=== PATIENT | male | born 1960 | race Caucasian/White ===

== ENCOUNTER 2016-12-19 12:01 | Emergency (ER) | payer OTHER ==
[~2016-12-19] VITALS: Wt 98.0 kg
[~2016-12-19 12:01] MED LIST: TAMS-14 PO
[2016-12-19] MEDS ORDERED: KETOROLAC 30 MG INJ IV STA (14:31)
[2016-12-19] MEDS ORDERED: ONDANSETRON 4 MG INJ IV STA (14:31)
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
[2016-12-19 14:35] LABS: URINE BLOOD (Dip) POC Negative (NEGATIVE)
[2016-12-19 15:09] LABS: BASOPHILS % 0.2 % (0.0-2.0); EOSINOPHILS # 0.3 10^3/ul (0.0-0.5); EOSINOPHILS % 2.5 % (0.0-7.0); HEMATOCRIT 48.3 % (42.0-52.0); HEMOGLOBIN 16.6 g/dl (14.0-18.0); LYMPHOCYTES # 2.8 10^3/ul (0.8-2.9); LYMPHOCYTES % 27.5 % (15.0-51.0); MEAN CORPUSCULAR HEMOGLOBIN 33.1 pg (29.0-33.0); MEAN CORPUSCULAR HGB CONC 34.3 g/dl (32.0-37.0); MEAN CORPUSCULAR VOLUME 96.6 fl (82.0-101.0); MEAN PLATELET VOLUME 7.9 fl (7.4-10.4); MONOCYTE # 0.7 10^3/ul (0.3-0.9); MONOCYTES % 7.1 % (0.0-11.0); NEUTROPHIL # 6.4 10^3/ul (1.6-7.5); NEUTROPHILS % 62.7 % (39.0-77.0); PLATELET COUNT 228 10^3/UL (140-440); RED CELL DISTRIBUTION WIDTH 14.2 % (11.5-14.5); UNCORRECTED WBC 10.2 10^3/ul (4.8-10.8); WHITE BLOOD COUNT 10.2 10^3/ul (4.8-10.8)
[2016-12-19 15:13] LABS: CONDITION 1
[2016-12-19 15:34] LABS: CHLORIDE 104 mmol/L (97-110)
[2016-12-19 15:35] LABS: ALBUMIN 4.1 g/dl (3.3-4.9); SODIUM 144 mmol/L (135-144)
[2016-12-19 15:36] LABS: POTASSIUM 4.1 mmol/L (3.5-5.1)
[2016-12-19 15:38] LABS: ALANINE AMINOTRANSFERASE 65 IU/L (13-69); ALKALINE PHOSPHATASE 109 IU/L (42-121); AMYLASE 155 U/L (11-123); ANION GAP 14 (8-16); ASPARTATE AMINO TRANSFERASE 44 IU/L (15-46); BILIRUBIN,INDIRECT 0.7 mg/dl (0-1.1); BILIRUBIN,TOTAL 0.7 mg/dl (0.2-1.3); BLOOD UREA NITROGEN 14 mg/dl (7-20); CALCIUM 9.3 mg/dl (8.4-10.2); CARBON DIOXIDE 30 mmol/L (21-31); CREATININE 0.88 mg/dl (0.61-1.24); GLUCOSE 95 mg/dl (70-220); TOTAL PROTEIN 7.5 g/dl (6.1-8.1)
[2016-12-19 15:39] LABS: INR 0.99; PROTIME 13.1 Sec (12.2-14.2)
[2016-12-19 15:40] LABS: PARTIAL THROMBOPLASTIN TIME 26.7 Sec (25.0-35.0)
--- NOTE | 2016-12-19 15:48 | RADRPT ---
PROCEDURE: US Scrotum. CLINICAL INDICATION: Evaluate for testicular torsion. TECHNIQUE: Multiple sonographic images of the scrotal region were obtained utilizing a linear arra y transducer with grayscale and color-flow and a Doppler imaging. The images were reviewed on a high -resolution PACS workstation. COMPARISON: No. FINDINGS: The right testicle is well visualized and has a normal echotexture. No focal areas of abnormal echog enicity are visualized. The right testicle measures measures 2.9 by 3.7 x 2.3 cm. There is normal co annette-flow the right testicle. The right epididymis is visualized and unremarkable in appearance. Ther e is normal color-flow. The left testicle is well visualized and has a normal echotexture. No focal areas abnormal echogenic ity are visualized. The left testicle measures measures 1.8 by 3.6 x 2 cm. There is normal color-robinson w. The left epididymis is visualized. Contains a epididymal cyst measuring 1.1 x 0.7 cm. There by is a adjacent 3.4 mm left epididymal cyst. There is normal color-flow. The scrotal wall is unremarkable. No swelling or edema is seen. There is no evidence of a varicocel e or hydrocele. No other incidental abnormality is identified. IMPRESSION: 1. There is no evidence of testicular torsion. 2. There are 2 benign cysts identified in the left epididymis. The largest measured 1.1 cm. RPTAT:AAJJ Physician Dany Date Time Electronically viewed and signed by Physician Dany on 12/19/2016 15:48 ELEONORA/
[2016-12-19 15:55] LABS: TROPONIN-I < 0.012 ng/ml (0.00-0.12)
[2016-12-19 16:04] LABS: ADD UMIC NO; URINE BILIRUBIN (Dip) NEGATIVE (NEGATIVE); URINE BLOOD (Dip) NEGATIVE (NEGATIVE); URINE COLOR LT. YELLOW (YELLOW); URINE GLUCOSE (Dip) NEGATIVE (NEGATIVE); URINE KETONES (Dip) NEGATIVE (NEGATIVE); URINE LEUKOCYTE ESTERASE (Dip) NEGATIVE (NEGATIVE); URINE NITRITE (Dip) NEGATIVE (NEGATIVE); URINE TOTAL PROTEIN (Dip) NEGATIVE (NEGATIVE); URINE UROBILINOGEN (Dip) 0.2 E.U./dL (0.1-1.0)
[2016-12-19] MEDS ORDERED: SOD CHLORIDE 0.9% 100 ML ONE (16:04)
[2016-12-19] MEDS ORDERED: IOHEXOL 300MG/ML 150 ML BTL ONE (16:04)
--- NOTE | 2016-12-19 16:56 | RADRPT ---
PROCEDURE: CT abdomen and pelvis with intravenous contrast. CLINICAL INDICATION: Right lower quadrant pain. Appendicitis. TECHNIQUE: CT scan of the abdomen and pelvis with intravenous t contrast was performed and is saran nstructed at 2.5 mm contiguous axial intervals from the dome of the diaphragm to the inferior pubic rami.. The patient was scanned without oral contrast. Sagittal and coronal reformatted images were obtained from the axial source images. The calculated radiation dose measures 975 mGy centimeters. The CTDI measures 15 mGy. COMPARISON: CT abdomen pelvis May 29, 2016 FINDINGS: The lung bases are clear of any infiltrate or nodule. No effusion is seen. The liver is of normal size, contour and attenuation with no mass or ductal dilatation. No gallston es are visualized. No splenic, adrenal or pancreatic abnormalities present. Kidneys enhance symmetrically and are of normal size and contour. No hydronephrosis, calculus or m asses seen. Ureters are of normal course and caliber with no stone. No bladder mass or stone is pr esent. Prostate and seminal vesicles are normal. There is no aneurysm. No adenopathy is present. No bowel mass or obstruction is present. The appendix is normal. No phlegmon, ascites or pneumop eritoneum is visualized. Noted is a right inguinal and scrotal hernia containing fat but no bowel. The osseous structures are intact. IMPRESSION: No evidence of urolithiasis, obstructive uropathy, diverticulitis or appendicitis. Right inguinal and scrotal hernia containing fat. .Aleksey Banuelos MD, Date Time Electronically viewed and signed by .Aleksey Banuelos MD, on 12/19/2016 16:55 .A/
[2016-12-19] MEDS ORDERED: HYDR-906 PO (17:54)
[2016-12-19 18:32] VITALS: BP 157/92; PULSE 63; RESP 16
== END 2016-12-19 18:30 | disposition home or self-care (01) ==
LOC: FTE 12:01
DX: K40.90 Unilateral inguinal hernia, without obstruction or gangrene, not specified as recurrent (principal); F17.210 Nicotine dependence, cigarettes, uncomplicated; R10.31 Right lower quadrant pain
CPT/HCPCS: 36415; 74177; 76870; 80053; 81003; 82150; 83690; 84484; 85025; 85610; 85730; 96374; 96375; J1885; J2405; Q9967; Z7502; Z7610

== ENCOUNTER 2017-01-14 08:02 | Day surgery (SDC) | payer OTHER ==
[2017-01-13 14:42] VITALS: BMI 32.0
[~2017-01-14] VITALS: Ht 172.7 cm; Wt 89.0 kg
[2017-01-14] VITALS (13 sets, daily range): BP systolic 100–149; BP diastolic 71–101; PULSE 70–78; RESP 13–18; Ht 172.7 cm; Wt 89.0 kg
[~2017-01-14 08:02] MED LIST changes: +HYDR-906 PO
--- NOTE | 2017-01-14 09:48 | HPN ---
Date/Time of Note Date/Time of Note DATE: 01/14/17 TIME: 09:48 Interval H&P Admission Note Pt. seen H&P reviewed: No system changes OLIVIA TONY MD Jan 14, 2017 09:48
[2017-01-14] MEDS ORDERED: CEFAZOLIN 1 GM INJ ONE (10:00)
[2017-01-14] MEDS ORDERED: PROPOFOL 20 ML ONE (10:00)
[2017-01-14] MEDS ORDERED: FENTAnyl 50 MCG/ML VIAL ONE ×2 (10:01→10:32)
[2017-01-14] MEDS ORDERED: MIDAZOLAM 1 MG/ML 2 ML INJ ONE (10:01)
[2017-01-14] MEDS ORDERED: BUPIVACAINE 0.25% (MPF) 30 ML INJ ONE (10:06)
[2017-01-14] MEDS ORDERED: POLYMYXIN/BACITRACIN 1L IRRIG ONE (10:06)
[2017-01-14] MEDS ORDERED: ONDANSETRON 4 MG INJ IV PRN ×2 (10:30→16:00)
[2017-01-14] MEDS ORDERED: EPHEDrine SULFATE 50 MG/5 ML SYG IV PRN (10:30)
[2017-01-14] MEDS ORDERED: LABETALOL HCL 20MG INJ IV PRN (10:30)
[2017-01-14] MEDS ORDERED: METOCLOPRAMIDE 10 MG INJ IV PRN (10:30)
[2017-01-14] MEDS ORDERED: DIPHENHYDRAMINE 50 MG INJ IV PRN (10:30)
[2017-01-14] MEDS ORDERED: hydrALAzine 20 MG INJ IV PRN (10:30)
[2017-01-14] MEDS ORDERED: MEPERIDINE 25 MG INJ IV PRN (10:30)
[2017-01-14] MEDS ORDERED: morphine (1 MG/ML) 10ML SYRINGE IV PRN ×3 (10:30)
[2017-01-14] MEDS ORDERED: HYDROmorphONE (0.2 MG/ML) 10ML SYG IV PRN ×3 (10:30)
[2017-01-14] MEDS ORDERED: PHENYLephrine (100 MCG/ML) 5ML SYG ONE (10:32)
[2017-01-14] MEDS ORDERED: ACETAMINOPHEN 1000MG/100ML IV 100 ML ONE (10:43)
[2017-01-14] MEDS ORDERED: ONDANSETRON 4 MG INJ ONE (11:27)
[2017-01-14] MEDS ORDERED: METOCLOPRAMIDE 10 MG INJ ONE (11:27)
[2017-01-14] MEDS ORDERED: DEXAMETHASONE 4 MG/ML 1 ML INJ ONE (11:27)
[2017-01-14] MEDS ORDERED: LEVALBUTEROL (NEB) 1.25 MG/0.5 ML AMP HHN ONE (11:30)
[2017-01-14] MEDS ORDERED: IPRATROPIUM (NEB) 0.5 MG/2.5 ML AMP HHN ONE (11:30)
--- NOTE | 2017-01-14 11:45 | OPR ---
DATE OF OPERATION: 01/14/2017 PREOPERATIVE DIAGNOSIS: Right inguinal hernia without obstruction. POSTOPERATIVE DIAGNOSIS: Right inguinal hernia without obstruction (direct and indirect). PROCEDURE PERFORMED: 1. Repair with extra-large and large plugs. 2. Right inguinal nerve block. SURGEON: Olivia Hull MD ANESTHESIA: General. ANESTHESIOLOGIST: Avelino Baugh MD OPERATIVE REPORT: After satisfactory general anesthesia was achieved, the lower abdomen was prepped and draped in the usual fashion. The right groin was entered through a 5 cm transverse incision th rough the right groin crease and carried down to the level of the external oblique. This was opened in the direction of its fibers. The cord was encircled and protected. There was a large indirect sac dissected to its base at the internal ring. The sac was transfixed and suture ligated at the ba se with 2-0 Vicryl. Redundant sac was excised and submitted. The internal ring was occluded by ryan cement of an extra-large plug secured circumferentially to healthy fascia with interrupted 3-0 Vicry l suture. There was also a direct inguinal hernia. This was reduced and the reduction was maintain ed by placing a large plug into the defect and securing it to healthy fascia and to the other mesh w ith 3-0 Vicryl. Next, the flat portion of the mesh was cut and fashioned to fit in the floor of the canal as an overlay. It was anchored at the pubic tubercle with 2-0 Novafil, laterally to inguinal ligament with interrupted 2-0 Novafil, and medially to conjoined tendon with interrupted 2-0 Novafi l. The mesh distal to the cord was reconstituted with a single suture of 2-0 Novafil creating a new internal ring of appropriate size. The cord was replaced beneath the external oblique, which was c losed with a running 3-0 Vicryl suture. Next, a right inguinal nerve block was performed, 10 mL of 0.25% plain Marcaine was injected into th e fascia 1 cm medial and inferior to the right anterior iliac spine. Then, 10 more mL of local anes thetic were injected directly into the wound. Myranda's fascia was closed with interrupted 3-0 Vicry l suture and skin closed with running 4-0 subcuticular Vicryl. Operative blood loss less than 20 mL . Sponge and needle counts reported as correct x2. The patient tolerated the procedure well and w ithout incident or complication. Dictated By: OLIVIA MORALES/JABIER Conf#: [id number] DID#: [id number] CC: NEGRITA CHAUDHARI MD;*EndCC*
[2017-01-14] MEDS ORDERED: OXYCODONE/ACETAMINOPHEN (5/325) TAB ONE (12:39)
[2017-01-14] MEDS ORDERED: OXYCODONE/ACETAMINOPHEN (5/325) TAB PO PRN ×2 (16:00)
[2017-01-14] MEDS ORDERED: morphine 2 MG INJ IV PRN (16:00)
== END 2017-01-14 13:48 | disposition home or self-care (01) ==
LOC: SDS 08:02
PROVIDERS: ATTEND Surgery
DX: K40.90 Unilateral inguinal hernia, without obstruction or gangrene, not specified as recurrent (principal)
CPT/HCPCS: 49505; C1781; J0131; J0690; J1100; J2250; J2270; J2370; J2405; J2765; J3010; Z7512; Z7610; 88302

== ENCOUNTER 2017-03-09 20:06 | Emergency (ER) | payer OTHER ==
[~2017-03-09] VITALS: Ht 177.8 cm; Wt 92.0 kg
[2017-03-09 20:08] VITALS: Ht 177.8 cm; Wt 92.0 kg
[2017-03-09] MEDS ORDERED: HYDROCODONE/APAP (10/325) TAB PO ONE (22:30)
[2017-03-10] MEDS ORDERED: OXYC-209 PO (00:27)
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
[2017-03-10 00:37] VITALS: BP 129/77; PULSE 79; RESP 18; TEMP 97.7
== END 2017-03-10 00:40 | disposition home or self-care (01) ==
LOC: E/R 20:06
DX: L76.82 Other postprocedural complications of skin and subcutaneous tissue (principal); F17.210 Nicotine dependence, cigarettes, uncomplicated
CPT/HCPCS: Z7502; Z7610; 99283

== ENCOUNTER 2017-04-12 12:45 | Emergency (ER) | payer OTHER ==
[~2017-04-12] VITALS: Ht 172.7 cm; Wt 87.0 kg
[~2017-04-12 12:45] MED LIST changes: +OXYC-209 PO
[2017-04-12 12:51] VITALS: Ht 172.7 cm; Wt 87.0 kg
[2017-04-12 14:29] LABS: URINE BLOOD (Dip) POC Negative (NEGATIVE)
[2017-04-12 15:14] LABS: ADD UMIC NO; URINE BILIRUBIN (Dip) NEGATIVE (NEGATIVE); URINE BLOOD (Dip) NEGATIVE (NEGATIVE); URINE COLOR LT. YELLOW (YELLOW); URINE GLUCOSE (Dip) NEGATIVE (NEGATIVE); URINE KETONES (Dip) NEGATIVE (NEGATIVE); URINE LEUKOCYTE ESTERASE (Dip) NEGATIVE (NEGATIVE); URINE NITRITE (Dip) NEGATIVE (NEGATIVE); URINE TOTAL PROTEIN (Dip) NEGATIVE (NEGATIVE); URINE UROBILINOGEN (Dip) 0.2 E.U./dL (0.1-1.0)
[2017-04-12 16:07] LABS: BARBITURATES Negative (NEGATIVE); BENZODIAZEPINES Negative (NEGATIVE); CANNABINOIDS Negative (NEGATIVE); COCAINE Negative (NEGATIVE); OPIATES Negative (NEGATIVE)
[2017-04-12 17:14] LABS: ADD SCAN DIFF NO; BASOPHILS % 0.3 % (0.0-2.0); EOSINOPHILS # 0.4 10^3/ul (0.0-0.5); EOSINOPHILS % 4.2 % (0.0-7.0); HEMATOCRIT 46.6 % (42.0-52.0); LYMPHOCYTES # 2.6 10^3/ul (0.8-2.9); MEAN CORPUSCULAR HEMOGLOBIN 32.1 pg (29.0-33.0); MEAN CORPUSCULAR HGB CONC 34.3 g/dl (32.0-37.0); MEAN CORPUSCULAR VOLUME 93.4 fl (82.0-101.0); MEAN PLATELET VOLUME 9.8 fl (7.4-10.4); MONOCYTE # 0.9 10^3/ul (0.3-0.9); MONOCYTES % 9.9 % (0.0-11.0); NEUTROPHILS % 56.4 % (39.0-77.0); PLATELET COUNT 230 10^3/UL (140-415); RED BLOOD COUNT 4.99 10^6/ul (4.70-6.10); RED CELL DISTRIBUTION WIDTH 13.7 % (11.5-14.5); WHITE BLOOD COUNT 8.9 10^3/ul (4.8-10.8)
[2017-04-12 17:34] LABS: ALANINE AMINOTRANSFERASE 57 IU/L (13-69); ALBUMIN 4.5 g/dl (3.3-4.9); ALBUMIN/GLOBULIN RATIO 1.66; ALKALINE PHOSPHATASE 85 IU/L (42-121); ANION GAP 11 (8-16); ASPARTATE AMINO TRANSFERASE 42 IU/L (15-46); BILIRUBIN,INDIRECT 1.2 mg/dl (0-1.1); BILIRUBIN,TOTAL 1.2 mg/dl (0.2-1.3); BLOOD UREA NITROGEN 13 mg/dl (7-20); CARBON DIOXIDE 29 mmol/L (21-31); CHLORIDE 106 mmol/L (97-110); CREATININE 0.92 mg/dl (0.61-1.24); GLUCOSE 89 mg/dl (70-220); SODIUM 142 mmol/L (135-144); TOTAL PROTEIN 7.2 g/dl (6.1-8.1)
[2017-04-12 17:39] LABS: ACETAMINOPHEN < 10.0 ug/ml (10.0-30.0); ETHANOL < 10.0 mg/dl; SALICYLATE < 1.0 mg/dl (5.0-30.0)
--- NOTE | 2017-04-12 18:59 | PSY ---
Date/Time of Note Date/Time of Note DATE: 04/12/17 TIME: 21:58 Psychiatric Subjective Eval Consent Pt consented to telemedicine: Yes Subjective Evaluation Patient location: emergency Chief Complaint: RECTAL PAIN X 4 DAYS History of present illness HPI: The patient is a 56 yo male well known to this ER, has a ho schizophrenia and substance use. He self presented for rectal and leg pain, which is his normal presentation. In the course of his evaluation, he began speaking about numerous delusions, including that he was forcibly violated by the police and hospital staff so that they can now control his bowel/bladder habits. He repeated this several times during the interview, would often tell MD that what he has to say is a "secret," that he would "thom" the MD or unclear reason, and that he does not need a psychiatrist but the nurses, doctors, and police as well as long term staff are trying to make him a "mental patient" for unclear reasons. He denied drug use though was positive for cocaine and methamphetamine. He would not report on any other questions PMHx: refused to answer Past Psych Hx: he has a ho multiple admits, would not report on anything else Pt declined to comment on meds, allergies, or any other part of his hx. MSE alert, initially cooperative then once he heard this MD is a psychiatrist isidoroe pressured, agitated butu stayed in med, pressured speech, would perseverate on delusions as above, refused to answer any other questions, when MD would ask questions he would either deny or tell MD that that information is private. Denies si/hi. Imp: 56 yo male with psychosis, acutely psychotic in the context of cocaine/ amphetamine use. Currently appears like he would be unable to function in the community in this state -fro now recommend 5150 in order to obtain full assessment; contact parallel hx to understand pt's baseline functioning. If pt remains in this state will likely need inpatient hospitalization -zyprexa 5mg po x1 now -for moderate agitation zyprexa 5mg po prn -for severe agitation haldol 5mg IM, ativan 2mg IM, cogentin 1mg IM -MD called Dr. Gilmore and left [facility] for him to call back Medical history Problems Medical Problems: (1) Abdominal pain Status: Acute (2) Cellulitis Status: Acute (3) Chest wall pain Status: Acute (4) Inguinal hernia Status: Acute (5) Pain of left leg Status: Acute (6) Postoperative complication Status: Acute (7) Psychosis Status: Acute (8) Substance abuse Status: Acute Allergies: Coded Allergies: ibuprofen (Verified Allergy, Unknown, 07/08/16) Psychiatric Objective Eval Mental Status Examination: Laboratory Results Laboratory Tests Test 04/12/17 14:33 04/12/17 14:40 04/12/17 16:50 Bedside Urine pH (LAB) 5.0 Bedside Urine Protein (LAB) Negative Bedside Urine Glucose (UA) Negative Bedside Urine Ketones (LAB) Negative Bedside Urine Blood Negative Bedside Urine Nitrite (LAB) Negative Bedside Urine Leukocyte Esterase (L Negative Urine Color LT. YELLOW Urine Clarity CLEAR Urine pH 5.5 Urine Specific [place] 1.015 Urine Ketones NEGATIVE Urine Nitrite NEGATIVE Urine Bilirubin NEGATIVE Urine Urobilinogen 0.2 E.U./dL Urine Leukocyte Esterase NEGATIVE Urine Hemoglobin NEGATIVE Urine Glucose NEGATIVE% Urine Total Protein NEGATIVE Urine Opiates Screen Negative Urine Barbiturates Negative Urine Amphetamines Screen POSITIVE Urine Benzodiazepines Screen Negative Urine Cocaine Screen Negative Urine Cannabinoids Negative White Blood Count 8.910^3/ul Red Blood Count 4.9910^6/ul Hemoglobin 16.0g/dl Hematocrit 46.6% Mean Corpuscular Volume 93.4fl Mean Corpuscular Hemoglobin 32.1pg Mean Corpuscular Hemoglobin Concent 34.3g/dl Red Cell Distribution Width 13.7% Platelet Count 39391^3/UL Mean Platelet Volume 9.8fl Neutrophils % 56.4% Lymphocytes % 29.0% Monocytes % 9.9% Eosinophils % 4.2% Basophils % 0.3% Nucleated Red Blood Cells % 0.0/100WBC Neutrophils # 5.010^3/ul Lymphocytes # 2.610^3/ul Monocytes # 0.910^3/ul Eosinophils # 0.410^3/ul Basophils # 0.010^3/ul Nucleated Red Blood Cells # 0.010^3/ul Sodium Level 142mmol/L Potassium Level 4.0mmol/L Chloride Level 106mmol/L Carbon Dioxide Level 29mmol/L Anion Gap 11 Blood Urea Nitrogen 13mg/dl Creatinine 0.92mg/dl Glucose Level 89mg/dl Calcium Level 9.0mg/dl Total Bilirubin 1.2mg/dl Direct Bilirubin 0.00mg/dl Indirect Bilirubin 1.2mg/dl Aspartate Amino Transf (AST/SGOT) 42IU/L Alanine Aminotransferase (ALT/SGPT) 57IU/L Alkaline Phosphatase 85IU/L Total Protein 7.2g/dl Albumin 4.5g/dl Globulin 2.70g/dl Albumin/Globulin Ratio 1.66 Salicylates Level < 1.0mg/dl Acetaminophen Level < 10.0ug/ml Ethyl Alcohol Level < 10.0mg/dl BRITTANY GR Apr 12, 2017 18:59
--- NOTE | 2017-04-12 19:47 | ERA ---
ER Documentation Chief Complaint Date/Time DATE: 04/12/17 TIME: 19:36 Chief Complaint buttocks pain HPI 56-year-old male patient well-known to the ER has a history of schizophrenia and drug abuse presents to the ED complaining of left-sided buttocks pain that radiates down his leg and rectum which started ever since 2011. States that he was seen at [facility] in 2011 and a nurse placed a Jacobson catheter and has been monitoring what he has been thinking for the past several years. Patient reports that he has numerous delusions about law-enforcement pretending to be medical providers and placing foreign objects into his body when they placed the Jacobson catheter. States that he has tried to "thom" other medical providers for unclear reasons. States that "those people" at the apartment where he lives are trying to poison his food. Denies any homicidal or suicidal ideations. Denies any hallucinations. Denies any drug use. Patient has been seen here previously for psychosis. Denies any chest pain, shortness of breath , melena, bloody stools, hematemesis, trauma, injuries, nausea, vomiting, diarrhea, fever, chills. ROS All systems reviewed and are negative except as per history of present illness. Medications Home Meds Active Scripts Oxycodone HCl/Acetaminophen (Percocet 10-325 mg Tablet) 1 Each Tablet, 1 EACH PO TID, #20 TAB Prov:MERVAT SIMONS 03/10/17 Hydrocodone/Acetaminophen ([place] 5-325 Tablet) 1 Each Tablet, 1 TAB PO Q6H Y for PAIN, #7 TAB Prov:GERARDO HELMS 12/19/16 Reported Medications Tamsulosin Hcl* (Flomax*) 0.4 Mg Cap.er.24h, 0.4 MG PO BID, CAP 05/29/16 Allergies Allergies: Coded Allergies: ibuprofen (Verified Allergy, Unknown, 07/08/16) PMhx/Soc Medical and Surgical Hx: pt denies Surgical Hx History of Surgery: Yes (ALEX LUNG DRAIN, HERNIA) Anesthesia Reaction: No Hx Neurological Disorder: No Hx Respiratory Disorders: No Hx Cardiac Disorders: No Hx Psychiatric Problems: No (denies, although admits to multiple 5150's in past ) Hx Miscellaneous Medical Probl: Yes (HIATAL HERNIA, UTI ) Hx Alcohol Use: No Hx Substance Use: Yes (METH) Hx Tobacco Use: Yes Smoking Status: Current every day smoker Physical Exam Vitals Vital Signs Date Time Temp Pulse Resp B/P Pulse Ox O2 Delivery O2 Flow Rate FiO2 04/12/17 12:51 97.8 85 18 133/72 100 Physical Exam Const: [id number], well-nourished. In no acute distress. Head: Atraumatic, normocephalic Eyes: Normal Conjunctiva without injection. No purulent discharge. ENT: Normal external ear, nose. Moist oropharynx without tonsillar exudates. Non -erythematous pharynx. Uvula midline. No drooling. No trismus. Neck: No cervical midline tenderness. Full range of motion. No meningismus. No cervical lymphadenopathy. No JVD. Resp: Clear to auscultation bilaterally. No wheezing, rhonchi, rales, or crackles. No accessory muscle use. No retractions. Cardio: Regular rate and rhythm. No murmurs, rubs or gallops. Abd: Soft, nontender, non distended. Normal bowel sounds. No palpable masses. No rebound tenderness. No guarding. Negative McBurney's point. Negative psoas sign. Negative obturator sign. No fluctuance, erythema, edema surrounding the buttocks region or anus. Rectal exam deferred. Skin: No petechiae or rashes Back: No midline tenderness. No CVA tenderness. Ext: No cyanosis, or edema. Neur: Awake and alert. Normal gait. Normal coordination. Agitated. Need for telepsychiatry consultation. Psych: Normal Mood and Affect Result Diagram: 04/12/17 1650 04/12/17 1650 Results 24 hrs Laboratory Tests Test 04/12/17 14:33 04/12/17 14:40 04/12/17 16:50 Bedside Urine pH (LAB) 5.0 Bedside Urine Protein (LAB) Negative Bedside Urine Glucose (UA) Negative Bedside Urine Ketones (LAB) Negative Bedside Urine Blood Negative Bedside Urine Nitrite (LAB) Negative Bedside Urine Leukocyte Esterase (L Negative Urine Color LT. YELLOW Urine Clarity CLEAR Urine pH 5.5 Urine Specific [place] 1.015 Urine Ketones NEGATIVE Urine Nitrite NEGATIVE Urine Bilirubin NEGATIVE Urine Urobilinogen 0.2 E.U./dL Urine Leukocyte Esterase NEGATIVE Urine Hemoglobin NEGATIVE Urine Glucose NEGATIVE% Urine Total Protein NEGATIVE Urine Opiates Screen Negative Urine Barbiturates Negative Urine Amphetamines Screen POSITIVE Urine Benzodiazepines Screen Negative Urine Cocaine Screen Negative Urine Cannabinoids Negative White Blood Count 8.910^3/ul Red Blood Count 4.9910^6/ul Hemoglobin 16.0g/dl Hematocrit 46.6% Mean Corpuscular Volume 93.4fl Mean Corpuscular Hemoglobin 32.1pg Mean Corpuscular Hemoglobin Concent 34.3g/dl Red Cell Distribution Width 13.7% Platelet Count 43815^3/UL Mean Platelet Volume 9.8fl Neutrophils % 56.4% Lymphocytes % 29.0% Monocytes % 9.9% Eosinophils % 4.2% Basophils % 0.3% Nucleated Red Blood Cells % 0.0/100WBC Neutrophils # 5.010^3/ul Lymphocytes # 2.610^3/ul Monocytes # 0.910^3/ul Eosinophils # 0.410^3/ul Basophils # 0.010^3/ul Nucleated Red Blood Cells # 0.010^3/ul Sodium Level 142mmol/L Potassium Level 4.0mmol/L Chloride Level 106mmol/L Carbon Dioxide Level 29mmol/L Anion Gap 11 Blood Urea Nitrogen 13mg/dl Creatinine 0.92mg/dl Glucose Level 89mg/dl Calcium Level 9.0mg/dl Total Bilirubin 1.2mg/dl Direct Bilirubin 0.00mg/dl Indirect Bilirubin 1.2mg/dl Aspartate Amino Transf (AST/SGOT) 42IU/L Alanine Aminotransferase (ALT/SGPT) 57IU/L Alkaline Phosphatase 85IU/L Total Protein 7.2g/dl Albumin 4.5g/dl Globulin 2.70g/dl Albumin/Globulin Ratio 1.66 Salicylates Level < 1.0mg/dl Acetaminophen Level < 10.0ug/ml Ethyl Alcohol Level < 10.0mg/dl Procedures/MDM This is a 56-year-old male patient with a history of schizophrenia and substance abuse presents to the ED complaining of left-sided buttock pain that radiates to his rectum and leg. Patient is afebrile and nontoxic-appearing. Patient has normal vital signs. Patient is speaking in full sentences. This case discussed with my supervising physician, Dr. Gilmore who agreed that we should have a tele-psychiatric consultation. CBC: No leukocytosis. No e/o of systemic infection. No e/o anemia. CMP: No e/o severe acidosis, alkalosis, renal failure, diabetic ketoacidosis, liver disease Urine: No leukocyte esterase, no nitrites, no hematuria. Urinalysis shows positive for amphetamines. Patient is under the care of Dr. Gilmore, my attending for further evaluation, treatment, and telepsychiatry consultation. Departure Diagnosis: Primary Impression: Psychosis Qualified Code: F29 - Psychosis, unspecified psychosis type Condition: Fair CA KING PA-C Apr 12, 2017 19:47
--- NOTE | 2017-04-12 20:42 | QN ---
Documentation Comment The patient was seen in ED 2 then sent to ED 1 for evaluation because of psychosis He was evaluated by telepsychiatrist who put on 5150 hold Unfortunately he eloped from the emergency department. I have asked the charge nurse Babita at 6:30 PM to contact [employer] to bring the patient back JONI GALEAS MD Apr 12, 2017 20:42
== END 2017-04-12 18:41 | disposition left against medical advice (07) ==
LOC: FTE 12:45 → E/R 18:41
DX: F29 Unspecified psychosis not due to a substance or known physiological condition (principal); F17.210 Nicotine dependence, cigarettes, uncomplicated
CPT/HCPCS: 36415; 80053; 80306; 80307; 81003; 85025; 99283

== ENCOUNTER 2017-04-20 02:33 | Emergency (ER) | payer OTHER ==
[~2017-04-20] VITALS: Ht 172.7 cm; Wt 88.0 kg
[2017-04-20 02:42] VITALS: Ht 172.7 cm; Wt 88.0 kg
[2017-04-20 03:57] LABS: ADD SCAN DIFF NO
[2017-04-20 04:05] LABS: BASOPHILS % 0.4 % (0.0-2.0); EOSINOPHILS # 0.2 10^3/ul (0.0-0.5); EOSINOPHILS % 1.8 % (0.0-7.0); HEMATOCRIT 46.2 % (42.0-52.0); LYMPHOCYTES # 2.9 10^3/ul (0.8-2.9); LYMPHOCYTES % 28.5 % (15.0-51.0); MEAN CORPUSCULAR HEMOGLOBIN 32.1 pg (29.0-33.0); MEAN CORPUSCULAR HGB CONC 34.6 g/dl (32.0-37.0); MEAN CORPUSCULAR VOLUME 92.6 fl (82.0-101.0); MEAN PLATELET VOLUME 9.7 fl (7.4-10.4); MONOCYTE # 0.8 10^3/ul (0.3-0.9); MONOCYTES % 7.8 % (0.0-11.0); NEUTROPHIL # 6.1 10^3/ul (1.6-7.5); NEUTROPHILS % 61.1 % (39.0-77.0); PLATELET COUNT 215 10^3/UL (140-415); RED BLOOD COUNT 4.99 10^6/ul (4.70-6.10); RED CELL DISTRIBUTION WIDTH 13.6 % (11.5-14.5)
[2017-04-20] MEDS ORDERED: OMEP40CA6 PO (04:18)
[2017-04-20 04:24] LABS: ALANINE AMINOTRANSFERASE 59 IU/L (13-69); ALBUMIN 4.5 g/dl (3.3-4.9); ALKALINE PHOSPHATASE 81 IU/L (42-121); ANION GAP 10 (8-16); ASPARTATE AMINO TRANSFERASE 35 IU/L (15-46); BILIRUBIN,INDIRECT 1.4 mg/dl (0-1.1); BILIRUBIN,TOTAL 1.4 mg/dl (0.2-1.3); BLOOD UREA NITROGEN 10 mg/dl (7-20); CARBON DIOXIDE 29 mmol/L (21-31); CHLORIDE 106 mmol/L (97-110); CREATININE 0.92 mg/dl (0.61-1.24); GLUCOSE 90 mg/dl (70-220); POTASSIUM 3.6 mmol/L (3.5-5.1); SODIUM 141 mmol/L (135-144)
[2017-04-20 04:26] LABS: ADD UMIC NO; UR BILIRUBIN (Dip) NEGATIVE (NEGATIVE); UR BLOOD (Dip) NEGATIVE (NEGATIVE); UR CLARITY CLEAR (CLEAR); UR COLOR LT. YELLOW (YELLOW); UR GLUCOSE (Dip) NEGATIVE (NEGATIVE); UR KETONES (Dip) NEGATIVE (NEGATIVE); UR LEUKOCYTE ESTERASE (Dip) NEGATIVE (NEGATIVE); UR NITRITE (Dip) NEGATIVE (NEGATIVE); UR TOTAL PROTEIN (Dip) NEGATIVE (NEGATIVE); UR UROBILINOGEN (Dip) 0.2 E.U./dL (0.1-1.0)
[2017-04-20 04:27] LABS: ACETAMINOPHEN < 10.0 ug/ml (10.0-30.0); ETHANOL < 10.0 mg/dl; SALICYLATE < 1.0 mg/dl (5.0-30.0)
[2017-04-20 04:51] LABS: BARBITURATES NEGATIVE (NEGATIVE); BENZODIAZEPINES NEGATIVE (NEGATIVE); CANNABINOIDS NEGATIVE (NEGATIVE); COCAINE NEGATIVE (NEGATIVE); OPIATES NEGATIVE (NEGATIVE)
--- NOTE | 2017-04-20 04:58 | ERA ---
ER Documentation Chief Complaint Date/Time DATE: 04/20/17 TIME: 04:57 Chief Complaint hearing voices, r foot pain states "someone put something in his shoes" HPI History of MS and is hearing voices that are times having spent some issues. Patient has history of previous psychiatric disorder. No obvious suicidal homicidal ideation. ROS All systems reviewed and are negative except as per history of present illness. Medications Home Meds Reported Medications Omeprazole* (Omeprazole*) 40 Mg Capsule.dr, 40 MG PO DAILY, #30 CAP 04/20/17 Tamsulosin Hcl* (Flomax*) 0.4 Mg Cap.er.24h, 0.4 MG PO BID, CAP 05/29/16 Discontinued Scripts Oxycodone HCl/Acetaminophen (Percocet 10-325 mg Tablet) 1 Each Tablet, 1 EACH PO TID, #20 TAB Prov:MERVAT SIMONS. 03/10/17 Hydrocodone/Acetaminophen ([place] 5-325 Tablet) 1 Each Tablet, 1 TAB PO Q6H Y for PAIN, #7 TAB Prov:GERARDO HELMS 12/19/16 Allergies Allergies: Coded Allergies: ibuprofen (Unverified Allergy, Unknown, 04/20/17) PMhx/Soc History of Surgery: Yes (ALEX LUNG DRAIN, HERNIA) Anesthesia Reaction: No Hx Neurological Disorder: No Hx Respiratory Disorders: No Hx Cardiac Disorders: No Hx Psychiatric Problems: No (denies, although admits to multiple 5150's in past ) Hx Miscellaneous Medical Probl: Yes (HIATAL HERNIA, UTI ) Hx Alcohol Use: No Hx Substance Use: Yes (METH) Hx Tobacco Use: Yes Smoking Status: Unknown if ever smoked Physical Exam Vitals Vital Signs Date Time Temp Pulse Resp B/P Pulse Ox O2 Delivery O2 Flow Rate FiO2 04/20/17 02:42 97.5 110 23 157/115 98 Physical Exam Const: [] Head: Atraumatic Eyes: Normal Conjunctiva ENT: Normal External Ears, Nose and Mouth. Neck: Full range of motion..~ No meningismus. Resp: Clear to auscultation bilaterally Cardio: Regular rate and rhythm, no murmurs Abd: Soft, non tender, non distended. Normal bowel sounds Skin: No petechiae or rashes Back: No midline or flank tenderness Ext: No cyanosis, or edema Neur: Awake and alert Psych: Normal Mood and Affect Result Diagram: 04/20/17 0346 04/20/17 0346 Results 24 hrs Laboratory Tests Test 04/20/17 03:46 04/20/17 03:58 White Blood Count 10.010^3/ul Red Blood Count 4.9910^6/ul Hemoglobin 16.0g/dl Hematocrit 46.2% Mean Corpuscular Volume 92.6fl Mean Corpuscular Hemoglobin 32.1pg Mean Corpuscular Hemoglobin Concent 34.6g/dl Red Cell Distribution Width 13.6% Platelet Count 90681^3/UL Mean Platelet Volume 9.7fl Neutrophils % 61.1% Lymphocytes % 28.5% Monocytes % 7.8% Eosinophils % 1.8% Basophils % 0.4% Nucleated Red Blood Cells % 0.0/100WBC Neutrophils # 6.110^3/ul Lymphocytes # 2.910^3/ul Monocytes # 0.810^3/ul Eosinophils # 0.210^3/ul Basophils # 0.010^3/ul Nucleated Red Blood Cells # 0.010^3/ul Sodium Level 141mmol/L Potassium Level 3.6mmol/L Chloride Level 106mmol/L Carbon Dioxide Level 29mmol/L Anion Gap 10 Blood Urea Nitrogen 10mg/dl Creatinine 0.92mg/dl Glucose Level 90mg/dl Calcium Level 9.0mg/dl Total Bilirubin 1.4mg/dl Direct Bilirubin 0.00mg/dl Indirect Bilirubin 1.4mg/dl Aspartate Amino Transf (AST/SGOT) 35IU/L Alanine Aminotransferase (ALT/SGPT) 59IU/L Alkaline Phosphatase 81IU/L Total Protein 7.0g/dl Albumin 4.5g/dl Globulin 2.50g/dl Albumin/Globulin Ratio 1.80 Salicylates Level < 1.0mg/dl Acetaminophen Level < 10.0ug/ml Ethyl Alcohol Level < 10.0mg/dl Urine Color LT. YELLOW Urine Clarity CLEAR Urine pH 5.5 Urine Specific [place] 1.020 Urine Ketones NEGATIVE Urine Nitrite NEGATIVE Urine Bilirubin NEGATIVE Urine Urobilinogen 0.2 E.U./dL Urine Leukocyte Esterase NEGATIVE Urine Hemoglobin NEGATIVE Urine Glucose NEGATIVE% Urine Total Protein NEGATIVE Urine Opiates Screen NEGATIVE Urine Barbiturates NEGATIVE Urine Amphetamines Screen POSITIVE Urine Benzodiazepines Screen NEGATIVE Urine Cocaine Screen NEGATIVE Urine Cannabinoids NEGATIVE Procedures/MDM Patient's behavioral symptoms have stabilized while in the department. Patient is medically cleared and appropriate for psychiatric evaluation and work up. No e/o neurologic, toxic, infectious, or metabolic cause. Patient evaluated by PET team and found to be stable for outpatient management Departure Diagnosis: Primary Impression: Psychological disorder Condition: Serious MERVAT SIMONS Andrew. Apr 20, 2017 04:58
[2017-04-20 06:04] VITALS: BP 139/97; PULSE 79; RESP 20; TEMP 98
--- NOTE | 2017-04-20 06:58 | PSY ---
Date/Time of Note Date/Time of Note DATE: 04/20/17 TIME: 06:45 Psychiatric Subjective Eval Consent Pt consented to telemedicine: Yes Subjective Evaluation Patient location: emergency Chief Complaint: hearing voices, r foot pain states "someone put something in his shoes" Reason for consult: delusional History of present illness patient is a 56 yo male living in a sober living with PPH of amphetamine use. who came to the ER due to foot pain and told ER staff that someone put something in his shoes, he was paranoid and psych eval was requested. Patient denies any psych hx but was put on a 5150 hold probably for a similar presentation since he states that the police put him on a 5150 hold for not believing that people were after him, but he was not admitted. He denies feeling depressed, hopeless or helpless , denies feeling anxious, denies any problem sleeping but feels that people at his sober living are "messing with him and poisoning him" and denies wanting to hurt them but he is hoping to catch them to denounce them to the police. denies any drug or alcohol use, no HI or SI, he is able to care for himself, find food and assisted , he is alert and oriented times 3, and goal directed but utox positive for amphetamine. Past psychiatric history one 5150 hold Medical history Problems Medical Problems: (1) Abdominal pain Status: Acute (2) Cellulitis Status: Acute (3) Chest wall pain Status: Acute (4) Inguinal hernia Status: Acute (5) Pain of left leg Status: Acute (6) Postoperative complication Status: Acute (7) Psychological disorder Status: Acute (8) Psychosis Status: Acute (9) Psychosis Status: Acute (10) Substance abuse Status: Acute Allergies: Coded Allergies: ibuprofen (Unverified Allergy, Unknown, 04/20/17) Substance Abuse Substance abuse history: Yes (amphetamine ) Prior substance abuse treatmen: No Social History Marital status: single Level of education: hs DPA/Conservatorship: No Occupation/Nursing Home: unemployed Psychiatric Objective Eval Review of Systems: Review of Systems: Not Applicable Physical Examination: Physical Examination: Applicable Sleep: Adequate Appetite: Adequate Energy: Adequate Interest: Adequate Mental Status Examination: Appearance: Groomed Eye Contact: Good Psychomotor Activity: Agitated Behavior: Cooperative Speech: Clear AFFECT: Appropriate Mood: Anxious Though Process: Linear Thought Content: Delusions Suicidal: No On 72 hour hold: No Orientation: x3 Cognition: Alert Insight: Mild Judgement: Mild Attention Span: Intact Laboratory Results Laboratory Tests Test 04/20/17 03:46 04/20/17 03:58 White Blood Count 10.010^3/ul Red Blood Count 4.9910^6/ul Hemoglobin 16.0g/dl Hematocrit 46.2% Mean Corpuscular Volume 92.6fl Mean Corpuscular Hemoglobin 32.1pg Mean Corpuscular Hemoglobin Concent 34.6g/dl Red Cell Distribution Width 13.6% Platelet Count 82103^3/UL Mean Platelet Volume 9.7fl Neutrophils % 61.1% Lymphocytes % 28.5% Monocytes % 7.8% Eosinophils % 1.8% Basophils % 0.4% Nucleated Red Blood Cells % 0.0/100WBC Neutrophils # 6.110^3/ul Lymphocytes # 2.910^3/ul Monocytes # 0.810^3/ul Eosinophils # 0.210^3/ul Basophils # 0.010^3/ul Nucleated Red Blood Cells # 0.010^3/ul Sodium Level 141mmol/L Potassium Level 3.6mmol/L Chloride Level 106mmol/L Carbon Dioxide Level 29mmol/L Anion Gap 10 Blood Urea Nitrogen 10mg/dl Creatinine 0.92mg/dl Glucose Level 90mg/dl Calcium Level 9.0mg/dl Total Bilirubin 1.4mg/dl Direct Bilirubin 0.00mg/dl Indirect Bilirubin 1.4mg/dl Aspartate Amino Transf (AST/SGOT) 35IU/L Alanine Aminotransferase (ALT/SGPT) 59IU/L Alkaline Phosphatase 81IU/L Total Protein 7.0g/dl Albumin 4.5g/dl Globulin 2.50g/dl Albumin/Globulin Ratio 1.80 Salicylates Level < 1.0mg/dl Acetaminophen Level < 10.0ug/ml Ethyl Alcohol Level < 10.0mg/dl Urine Color LT. YELLOW Urine Clarity CLEAR Urine pH 5.5 Urine Specific [place] 1.020 Urine Ketones NEGATIVE Urine Nitrite NEGATIVE Urine Bilirubin NEGATIVE Urine Urobilinogen 0.2 E.U./dL Urine Leukocyte Esterase NEGATIVE Urine Hemoglobin NEGATIVE Urine Glucose NEGATIVE% Urine Total Protein NEGATIVE Urine Opiates Screen NEGATIVE Urine Barbiturates NEGATIVE Urine Amphetamines Screen POSITIVE Urine Benzodiazepines Screen NEGATIVE Urine Cocaine Screen NEGATIVE Urine Cannabinoids NEGATIVE Assessment and Plan Assessment/Diagnosis [place] I: amphetamine induced psychosis [place] II: deferred [place] III: as per record [place] IV: poor social support [place] V: gaf 25 Recommendation/Plan Medication Management refusing medication Follow-up/Disposition In my opinion,for this patient, outpatient care is the least restrictive option. Based on available evidence, this condition CAN be safely treated at a lower level of care effective today. Patient is stable without clear and convincing evidence of imminent danger due to mental illness that requires acute inpatient psychiatric care as the least restrictive alternative. please refer patient to outpatient mental health clinic for medication management and pscyhotherapy YASIR AMEZQUITA MD Apr 20, 2017 06:55
== END 2017-04-20 07:06 | disposition home or self-care (01) ==
LOC: E/R 02:33
DX: F99 Mental disorder, not otherwise specified (principal); R40.2242 Coma scale, best verbal response, confused conversation, at arrival to emergency department; R40.2142 Coma scale, eyes open, spontaneous, at arrival to emergency department; R40.2362 Coma scale, best motor response, obeys commands, at arrival to emergency department; Z87.891 Personal history of nicotine dependence
CPT/HCPCS: 36415; 80053; 80306; 80307; 81003; 85025; Z7502; 99283

== ENCOUNTER 2017-04-25 01:36 | Inpatient (IN) | payer OTHER ==
[~2017-04-25] VITALS: Ht 172.7 cm; Wt 87.6 kg
[~2017-04-25 01:36] MED LIST changes: -HYDR-906 PO; +OMEP40CA6 PO; -OXYC-209 PO
[2017-04-25 02:05] VITALS: BP 112/79; RESP 20
[2017-04-25 02:18] VITALS: Ht 172.7 cm; Wt 87.6 kg
[2017-04-25] MEDS ORDERED: ONDANSETRON 4 MG INJ IV PRN (02:30)
[2017-04-25] MEDS ORDERED: DOCUSATE SODIUM 100 MG CAP PO PRN (02:30)
[2017-04-25] MEDS ORDERED: VANCOMYCIN IV PER PHARMACY XX SCH (02:30)
[2017-04-25] MEDS ORDERED: ACETAMINOPHEN 325 MG TAB PO PRN (02:30)
[2017-04-25] MEDS: HYDROCODONE/APAP (5/325) TAB PO PRN ×3 (02:56→20:24)
[2017-04-25] MEDS ORDERED: VANCOMYCIN 1.25 GM in SOD CHLORIDE 0.9% 250 ML IVPB SCH (03:00)
[2017-04-25 04:55] LABS: ADD SCAN DIFF NO
[2017-04-25 05:03] LABS: BASOPHILS % 0.3 % (0.0-2.0); EOSINOPHILS # 0.2 10^3/ul (0.0-0.5); EOSINOPHILS % 2.1 % (0.0-7.0); HEMATOCRIT 39.9 % (42.0-52.0); HEMOGLOBIN 13.8 g/dl (14.0-18.0); LYMPHOCYTES % 28.2 % (15.0-51.0); MEAN CORPUSCULAR HEMOGLOBIN 32.5 pg (29.0-33.0); MEAN CORPUSCULAR HGB CONC 34.6 g/dl (32.0-37.0); MEAN CORPUSCULAR VOLUME 93.9 fl (82.0-101.0); MEAN PLATELET VOLUME 9.8 fl (7.4-10.4); MONOCYTE # 1.1 10^3/ul (0.3-0.9); NEUTROPHIL # 6.3 10^3/ul (1.6-7.5); PLATELET COUNT 179 10^3/UL (140-415); RED BLOOD COUNT 4.25 10^6/ul (4.70-6.10); RED CELL DISTRIBUTION WIDTH 13.9 % (11.5-14.5); WHITE BLOOD COUNT 10.7 10^3/ul (4.8-10.8)
[2017-04-25 05:43] LABS: ALBUMIN 3.5 g/dl (3.3-4.9); ALBUMIN/GLOBULIN RATIO 1.52; BILIRUBIN,INDIRECT 1.6 mg/dl (0-1.1); BILIRUBIN,TOTAL 1.6 mg/dl (0.2-1.3); CALCIUM 8.2 mg/dl (8.4-10.2); CREATININE 0.79 mg/dl (0.61-1.24); PHOSPHORUS 2.3 mg/dl (2.5-4.9); POTASSIUM 3.8 mmol/L (3.5-5.1); TOTAL PROTEIN 5.8 g/dl (6.1-8.1)
[2017-04-25] MEDS: morphine 2 MG INJ IV PRN ×2 (05:46→22:23)
[2017-04-25] MEDS: PANTOPRAZOLE (EC) 40 MG TAB PO SCH (05:51)
--- NOTE | 2017-04-25 07:49 | HP ---
DATE OF ADMISSION: 04/25/2017 CHIEF COMPLAINT: Rectal pain. HISTORY OF PRESENT ILLNESS: The patient is a 56-year-old male with a history of psychiatric disorde r, likely schizophrenia, although the patient does deny any psych issues. The patient has been at [facility] in the past and has been evaluated by psychiatry. The patient was previously fadumo gnosed with amphetamine-induced psychosis. The patient presented to [facility] with the co mplaint of rectal pain. The patient did have a white count. He was transferred with the diagnosis of cellulitis in the perirectal area. Currently, he denies any significant itching in the actual re ctum. He states that the itching is on the proximal thigh. The patient states that he had a colono scopy recently at [facility], but results are not available on [facility]. It is unclear if this was actually done. The patient did have a right inguinal hernia repair in December of this year. Otherwise, the patient denies any significant medical history. PAST MEDICAL HISTORY: Psychiatric disorder. 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 It is unclear if he has any other psychiatric history. The patient denies having any psychiatric history. The patient den ies any other medical history. The patient had an EGD and colonoscopy in 2015 that showed GERD, gas tritis, PAST SURGICAL HISTORY: Right inguinal hernia repair with mesh in December 2016. HOME MEDICATIONS: 1. Flomax. 2. Omeprazole. ALLERGIES: IBUPROFEN. FAMILY HISTORY: Denies. SOCIAL HISTORY: He is currently homeless. Denies any alcohol abuse, tobacco abuse at this time. W hen it comes to drugs, he states that the occasionally uses, but he is not clear as to what type. H e does not want to tell me what type of drugs he uses. REVIEW OF SYSTEMS: A 12-point review of systems is negative except for that as discussed in HPI. PHYSICAL EXAMINATION: VITAL SIGNS: Temperature is 97.5, pulse 60, respiratory rate is 20, blood pressure is 112/79, satur ation 95% on room air. GENERAL: No acute distress, alert, and oriented. HEENT: Normocephalic, atraumatic. LUNGS: Clear to auscultation. CARDIOVASCULAR: Regular rate and rhythm. ABDOMEN: Nondistended, nontender, soft. EXTREMITIES: No clubbing, cyanosis, or edema. SKIN: Chronic skin changes noted in the perirectal area. No acute erythema. LABORATORIES: At [facility], white count 20.9, hemoglobin of 15.7. Lactic acid 1.4. UA i s normal except for some trace protein, 15 ketones. BNP is within normal limits except for glucose slightly elevated at 107. DIAGNOSTICS: Chest x-ray is normal. ASSESSMENT AND PLAN 1. Leukocytosis. This is likely reactive. There are no acute infection noted. No perirectal absc esses infection is noted. The patient reportedly had a CT scan. 2. ____ the patient had no abscess in the perirectal area. No indication for antibiotics. His whi te count is likely reactive. UA shows no infection. Chest x-ray was also normal with no evidence o f pneumonia. 3. History of amphetamine-induced psychosis. The patient has no psychosis at this time. The patie nt denies any history of schizophrenia or any other psychiatric disorder. 4. History of right inguinal hernia repair with no acute issues. 5. Homelessness. The patient would benefit from a forensic social worker consultation. 6. Prophylaxis. SCDs. Dictated By: TSERING STRICKLAND/JABIER Conf#: [id number] DID#: [id number]
[2017-04-25 08:04] VITALS: BP 101/64; RESP 19
--- NOTE | 2017-04-25 12:51 | PN ---
Date/Time of Note Date/Time of Note DATE: 04/25/17 TIME: 12:44 Assessment/Plan VTE Prophylaxis VTE Prophylaxis Intervention: ambulation Lines/Catheters [facility] ([facility] Saline Lock Central line still needed: No Urinary Cath still in place: No Assessment/Plan Assessment/Plan 1. Leukocytosis. Resolved. Etiology is likely reactive. There are no acute infection noted. No perirectal abscesses infection is noted. 2. Abscess: Not seen. The patient had no abscess in the perirectal area by examination. No indication for antibiotics. His white count is likely reactive. UA shows no infection. Chest x-ray was also normal with no evidence of pneumonia. 3. History of amphetamine-induced psychosis. The patient has no psychosis at this time. The patient denies any history of schizophrenia or any other psychiatric disorder. 4. History of right inguinal hernia repair with no acute issues. 5. Social. The patient would benefit from a social work associate consultation to assist with placement. He lives in [place], but his family may not want him there as they had "a falling out." 6. Amphetamine-induced psychosis: will get psych re-evaluation. This can also safely be done as an outpatient. 7. Prophylaxis. Protonix; SCDs. ambulation. Subjective 24 Hr Interval Summary Free Text/Dictation Talkative. No complaints. Constitutional: no complaints Exam/Review of Systems Vital Signs Vitals Vital Signs Date Time Temp Pulse Resp B/P Pulse Ox O2 Delivery O2 Flow Rate FiO2 04/25/17 08:04 98.7 61 19 101/64 100 Intake and Output 04/24/17 04/24/17 04/25/17 15:00 23:00 07:00 Intake Total 750 ml Balance 750 ml Exam Constitutional: alert, oriented, well developed Psych: anxiety, no complaints Head: normocephalic Eyes: nl conjunctiva ENMT: nl external ears & nose Neck: supple Respiratory: clear to auscultation Cardiovascular: regular rate and rhythm Gastrointestinal: soft Musculoskeletal: nl extremities to inspection Results Result Diagram: 04/25/17 0434 04/25/17 0434 Results 24 hrs Laboratory Tests Test 04/25/17 04:34 White Blood Count 10.7 Red Blood Count 4.25 L Hemoglobin 13.8 L Hematocrit 39.9 L Mean Corpuscular Volume 93.9 Mean Corpuscular Hemoglobin 32.5 Mean Corpuscular Hemoglobin Concent 34.6 Red Cell Distribution Width 13.9 Platelet Count 179 Mean Platelet Volume 9.8 Neutrophils % 59.0 Lymphocytes % 28.2 Monocytes % 10.0 Eosinophils % 2.1 Basophils % 0.3 Nucleated Red Blood Cells % 0.0 Neutrophils # 6.3 Lymphocytes # 3.0 H Monocytes # 1.1 H Eosinophils # 0.2 Basophils # 0.0 Nucleated Red Blood Cells # 0.0 Sodium Level 140 Potassium Level 3.8 Chloride Level 111 H Carbon Dioxide Level 26 Anion Gap 7 L Blood Urea Nitrogen 17 Creatinine 0.79 Glucose Level 96 Hemoglobin A1c 5.5 Calcium Level 8.2 L Phosphorus Level 2.3 L Magnesium Level 2.0 Total Bilirubin 1.6 H Direct Bilirubin 0.00 Indirect Bilirubin 1.6 H Aspartate Amino Transf (AST/SGOT) 28 Alanine Aminotransferase (ALT/SGPT) 39 Alkaline Phosphatase 58 Total Protein 5.8 L Albumin 3.5 Globulin 2.30 Albumin/Globulin Ratio 1.52 Medications Medications Current Medications Ondansetron HCl (Zofran Inj) 4 mg Q6H PRN IV NAUSEA AND/OR VOMITING; Start at 02:30 Acetaminophen (Tylenol Tab) 650 mg Q6H PRN PO PAIN AND OR ELEVATED TEMP; Start 04/25/17 at 02:30 Acetaminophen/ Hydrocodone Bitart ([place] (5/325)) 1 tab Q4H PRN PO PAIN LEVEL 4 -6 Last administered on 04/25/17 11:02; Admin Dose 1 TAB; Start 04/25/17 at 02: 30 Morphine Sulfate (morphine) 2 mg Q4H PRN IV PAIN LEVEL 7-10 Last administered on 04/25/17 05:46; Admin Dose 2 MG; Start 04/25/17 at 02:30 Docusate Sodium (Colace) 100 mg BID PRN PO constipation Last administered on 05:46; Admin Dose 100 MG; Start 04/25/17 at 02:30 Pantoprazole (Protonix Tab) 40 mg DAILY@06 PO Last administered on 04/25/17 05 :51; Admin Dose 40 MG; Start 04/25/17 at 06:00 MADHAVI KOEHLER MD Apr 25, 2017 12:51
[2017-04-25] MEDS: NYSTATIN 15 GM CR TOP SCH ×2 (14:19→22:02)
[2017-04-25 19:53] VITALS: BP 107/65; RESP 16
[2017-04-26] MEDS: PANTOPRAZOLE (EC) 40 MG TAB PO SCH (06:27)
[2017-04-26] MEDS: HYDROCODONE/APAP (5/325) TAB PO PRN ×2 (07:02→21:48)
[2017-04-26 08:43] VITALS: BP 108/78; RESP 18
--- NOTE | 2017-04-26 08:46 | PN ---
Date/Time of Note Date/Time of Note DATE: 04/26/17 TIME: 08:44 Assessment/Plan VTE Prophylaxis VTE Prophylaxis Intervention: ambulation Lines/Catheters IV [facility] Type (from [facility] Saline Lock Urinary Cath still in place: No Assessment/Plan Assessment/Plan 1. Leukocytosis. Resolved. Etiology is likely reactive. There are no acute infection noted. No perirectal abscesses infection is noted. 2. History of amphetamine-induced psychosis. The patient has no psychosis at this time. The patient denies any history of schizophrenia or any other psychiatric disorder. Awaiting tele-psych recommendations. 4. History of right inguinal hernia repair with no acute issues. 5. Social. The patient would benefit from a social welfare administrator consultation to assist with placement. He lives in [place], but his family may not want him there as they had "a falling out." 6. Amphetamine-induced psychosis: will get psych re-evaluation. Hoepfully today to start medications. This can also safely be continued as an outpatient. 7. Prophylaxis. Protonix; SCDs. ambulation. Subjective 24 Hr Interval Summary Free Text/Dictation Resting comfortably in bed. He is still delusional with thoughts. Exam/Review of Systems Vital Signs Vitals Vital Signs Date Time Temp Pulse Resp B/P Pulse Ox O2 Delivery O2 Flow Rate FiO2 04/25/17 19:53 98.5 69 16 107/65 95 Intake and Output 04/25/17 04/25/17 04/26/17 14:59 22:59 06:59 Intake Total 700 ml 600 ml Output Total 100 ml Balance 600 ml 600 ml Exam Constitutional: alert, oriented Psych: anxiety Head: normocephalic Eyes: nl conjunctiva ENMT: nl external ears & nose Neck: supple Respiratory: clear to auscultation Cardiovascular: regular rate and rhythm Gastrointestinal: soft Results Result Diagram: 04/25/17 0434 04/25/17 0434 Medications Medications Current Medications Ondansetron HCl (Zofran Inj) 4 mg Q6H PRN IV NAUSEA AND/OR VOMITING; Start at 02:30 Acetaminophen (Tylenol Tab) 650 mg Q6H PRN PO PAIN AND OR ELEVATED TEMP; Start 04/25/17 at 02:30 Acetaminophen/ Hydrocodone Bitart ([place] (5/325)) 1 tab Q4H PRN PO PAIN LEVEL 4 -6 Last administered on 04/26/17 07:02; Admin Dose 1 TAB; Start 04/25/17 at 02: 30 Morphine Sulfate (morphine) 2 mg Q4H PRN IV PAIN LEVEL 7-10 Last administered on 04/25/17 22:23; Admin Dose 2 MG; Start 04/25/17 at 02:30 Docusate Sodium (Colace) 100 mg BID PRN PO constipation Last administered on 05:46; Admin Dose 100 MG; Start 04/25/17 at 02:30 Pantoprazole (Protonix Tab) 40 mg DAILY@06 PO Last administered on 04/26/17 06 :27; Admin Dose 40 MG; Start 04/25/17 at 06:00 Nystatin (Nystatin Cr) 1 applic BID TOP Last administered on 04/25/17 22:02; Admin Dose 1 APPLIC; Start 04/25/17 at 14:30 MADHAVI KOEHLER MD Apr 26, 2017 08:46
[2017-04-26] MEDS: NYSTATIN 15 GM CR TOP SCH ×2 (10:08→20:00)
--- NOTE | 2017-04-26 10:46 | PN ---
Date/Time of Note Date/Time of Note DATE: 04/26/17 TIME: 10:44 Assessment/Plan VTE Prophylaxis VTE Prophylaxis Intervention: ambulation Lines/Catheters IV Catheter Type (from Nrsg): Saline Lock Urinary Cath still in place: No Assessment/Plan Assessment/Plan 1. leukocytosis, nos, improving, will recheck 2. paranoia, will investigate psychiatric possiblities, though patient has refused care in the past 3. homelss, await social work 4. anticipate d.c tomorrow Subjective 24 Hr Interval Summary Free Text/Dictation somewhat agitated very fixed on perceived maltreatment from law enforcement, the govenrment, and health care seems quite paranoid Exam/Review of Systems Vital Signs Vitals Vital Signs Date Time Temp Pulse Resp B/P Pulse Ox O2 Delivery O2 Flow Rate FiO2 04/26/17 08:43 97.6 58 18 108/78 97 Intake and Output 04/25/17 04/25/17 04/26/17 15:00 23:00 07:00 Intake Total 700 ml 600 ml Output Total 100 ml Balance 600 ml 600 ml Exam Constitutional: alert Respiratory: clear to auscultation Cardiovascular: regular rate and rhythm Gastrointestinal: non-tender, soft Results Result Diagram: 04/25/17 0434 04/25/17 0434 Medications Medications Current Medications Ondansetron HCl (Zofran Inj) 4 mg Q6H PRN IV NAUSEA AND/OR VOMITING; Start at 02:30 Acetaminophen (Tylenol Tab) 650 mg Q6H PRN PO PAIN AND OR ELEVATED TEMP; Start 04/25/17 at 02:30 Acetaminophen/ Hydrocodone Bitart ([place] (5/325)) 1 tab Q4H PRN PO PAIN LEVEL 4 -6 Last administered on 04/26/17 07:02; Admin Dose 1 TAB; Start 04/25/17 at 02: 30 Morphine Sulfate (morphine) 2 mg Q4H PRN IV PAIN LEVEL 7-10 Last administered on 04/25/17 22:23; Admin Dose 2 MG; Start 04/25/17 at 02:30 Docusate Sodium (Colace) 100 mg BID PRN PO constipation Last administered on 05:46; Admin Dose 100 MG; Start 04/25/17 at 02:30 Pantoprazole (Protonix Tab) 40 mg DAILY@06 PO Last administered on 04/26/17 06 :27; Admin Dose 40 MG; Start 04/25/17 at 06:00 Nystatin (Nystatin Cr) 1 applic BID TOP Last administered on 04/26/17 10:08; Admin Dose 1 APPLIC; Start 04/25/17 at 14:30 NAM MESSINA MD Apr 26, 2017 10:46
--- NOTE | 2017-04-26 12:41 | PN ---
Date/Time of Note Date/Time of Note DATE: 04/26/17 TIME: 12:39 Assessment/Plan VTE Prophylaxis VTE Prophylaxis Intervention: SCD's Lines/Catheters [facility] Saline Lock Urinary Cath still in place: No Assessment/Plan Chief Complaint/Hosp Course ASSESSMENT AND PLAN 1. Leukocytosis. This is likely reactive. There are no acute infection noted. No perirectal abscesses infection is noted. The patient reportedly had a CT scan. the patient had no abscess in the perirectal area. No indication for antibiotics. His white count is likely reactive. UA shows no infection. Chest x-ray was also normal with no evidence of pneumonia. 2. History of amphetamine-induced psychosis. The patient has no psychosis at this time. The patient denies any history of schizophrenia or any other psychiatric disorder. 3. History of right inguinal hernia repair with no acute issues. 4. Hyperbilirubinemia, follow up bilirubin level in a.m. 5. Homelessness. The patient would benefit from a social media developer consultation. 6. Prophylaxis. SCDs. We will continue monitor patient closely for recommendation management treatment as clinical course Anticipate discharge tomorrow Problems: Subjective 24 Hr Interval Summary Free Text/Dictation Patient denies of any chest pain or shortness of breath No nausea vomiting diarrhea Tolerating oral intake Exam/Review of Systems Vital Signs Vitals Vital Signs Date Time Temp Pulse Resp B/P Pulse Ox O2 Delivery O2 Flow Rate FiO2 04/26/17 08:43 97.6 58 18 108/78 97 Intake and Output 04/25/17 04/25/17 04/26/17 15:00 23:00 07:00 Intake Total 700 ml 600 ml Output Total 100 ml Balance 600 ml 600 ml Exam General: The patient is well-developed, Not in acute distress. HEENT: Atraumatic, normocephalic. The pupils are equal and round . Neck: Supple with full range of motion. Chest: Normal expansion of the thorax during inspiration Lungs: Clear to auscultation bilaterally Heart: Normal S1-S2, Regular rhythm and rate. Abdomen: Soft , nontender, nondistended , bowel sounds are present. Extremities: Normal to inspection, no edema no cyanosis Neurologic: Normal mental status,The patient is awake, alert and oriented . Results Result Diagram: 04/25/17 0434 04/25/17 0434 Medications Medications Current Medications Ondansetron HCl (Zofran Inj) 4 mg Q6H PRN IV NAUSEA AND/OR VOMITING; Start at 02:30 Acetaminophen (Tylenol Tab) 650 mg Q6H PRN PO PAIN AND OR ELEVATED TEMP; Start 04/25/17 at 02:30 Acetaminophen/ Hydrocodone Bitart ([place] (5/325)) 1 tab Q4H PRN PO PAIN LEVEL 4 -6 Last administered on 04/26/17 07:02; Admin Dose 1 TAB; Start 04/25/17 at 02: 30 Morphine Sulfate (morphine) 2 mg Q4H PRN IV PAIN LEVEL 7-10 Last administered on 04/25/17 22:23; Admin Dose 2 MG; Start 04/25/17 at 02:30 Docusate Sodium (Colace) 100 mg BID PRN PO constipation Last administered on 05:46; Admin Dose 100 MG; Start 04/25/17 at 02:30 Pantoprazole (Protonix Tab) 40 mg DAILY@06 PO Last administered on 04/26/17 06 :27; Admin Dose 40 MG; Start 04/25/17 at 06:00 Nystatin (Nystatin Cr) 1 applic BID TOP Last administered on 04/26/17 10:08; Admin Dose 1 APPLIC; Start 04/25/17 at 14:30 TERRY SINGH MD Apr 26, 2017 12:41
[2017-04-26] MEDS: morphine 2 MG INJ IV PRN (19:55)
[2017-04-26 20:00] VITALS: BP 129/82; RESP 16
[2017-04-27 05:18] LABS: ADD SCAN DIFF NO
[2017-04-27 05:31] LABS: BASOPHILS % 0.4 % (0.0-2.0); EOSINOPHILS # 0.4 10^3/ul (0.0-0.5); HEMATOCRIT 40.2 % (42.0-52.0); HEMOGLOBIN 13.9 g/dl (14.0-18.0); LYMPHOCYTES # 2.6 10^3/ul (0.8-2.9); LYMPHOCYTES % 39.3 % (15.0-51.0); MEAN CORPUSCULAR HEMOGLOBIN 32.3 pg (29.0-33.0); MEAN CORPUSCULAR HGB CONC 34.6 g/dl (32.0-37.0); MEAN CORPUSCULAR VOLUME 93.3 fl (82.0-101.0); MEAN PLATELET VOLUME 10.6 fl (7.4-10.4); MONOCYTE # 0.6 10^3/ul (0.3-0.9); MONOCYTES % 8.4 % (0.0-11.0); NEUTROPHIL # 3.1 10^3/ul (1.6-7.5); NEUTROPHILS % 45.6 % (39.0-77.0); PLATELET COUNT 191 10^3/UL (140-415); RED BLOOD COUNT 4.31 10^6/ul (4.70-6.10); RED CELL DISTRIBUTION WIDTH 13.5 % (11.5-14.5); WHITE BLOOD COUNT 6.7 10^3/ul (4.8-10.8)
[2017-04-27 05:57] LABS: ALBUMIN 3.3 g/dl (3.3-4.9); ALBUMIN/GLOBULIN RATIO 1.37; BILIRUBIN,INDIRECT 0.3 mg/dl (0-1.1); BILIRUBIN,TOTAL 0.3 mg/dl (0.2-1.3); CALCIUM 8.6 mg/dl (8.4-10.2); CREATININE 0.78 mg/dl (0.61-1.24); TOTAL PROTEIN 5.7 g/dl (6.1-8.1)
[2017-04-27] MEDS: PANTOPRAZOLE (EC) 40 MG TAB PO SCH (06:17)
[2017-04-27 07:54] VITALS: BP 122/78; RESP 19
[2017-04-27] MEDS: NYSTATIN 15 GM CR TOP SCH (09:00)
--- NOTE | 2017-04-27 10:34 | PN ---
Date/Time of Note Date/Time of Note DATE: 04/27/17 TIME: 10:28 Assessment/Plan VTE Prophylaxis VTE Prophylaxis Intervention: ambulation Lines/Catheters IV Catheter Type (from Nrs): Saline Lock Urinary Cath still in place: No Assessment/Plan Assessment/Plan 1. leukocytosis, improved, no cause identified 2. psychosis, nos plan psych eval, if not a candidate for hold, plan to d/c to self care 3. d/c home Subjective 24 Hr Interval Summary Free Text/Dictation patient remains fixated on his view that law enforcment has caused all of his health issues Exam/Review of Systems Vital Signs Vitals Vital Signs Date Time Temp Pulse Resp B/P Pulse Ox O2 Delivery O2 Flow Rate FiO2 04/27/17 07:54 97.6 59 19 122/78 98 Intake and Output 04/26/17 04/26/17 04/27/17 15:00 23:00 07:00 Intake Total 840 ml 840 ml Balance 840 ml 840 ml Exam Constitutional: alert Respiratory: clear to auscultation Cardiovascular: regular rate and rhythm Results Result Diagram: 04/27/17 0424 04/27/17 0424 Results 24 hrs Laboratory Tests Test 04/27/17 04:24 White Blood Count 6.7 # Red Blood Count 4.31 L Hemoglobin 13.9 L Hematocrit 40.2 L Mean Corpuscular Volume 93.3 Mean Corpuscular Hemoglobin 32.3 Mean Corpuscular Hemoglobin Concent 34.6 Red Cell Distribution Width 13.5 Platelet Count 191 Mean Platelet Volume 10.6 H Neutrophils % 45.6 Lymphocytes % 39.3 Monocytes % 8.4 Eosinophils % 6.0 Basophils % 0.4 Nucleated Red Blood Cells % 0.0 Neutrophils # 3.1 Lymphocytes # 2.6 Monocytes # 0.6 Eosinophils # 0.4 Basophils # 0.0 Nucleated Red Blood Cells # 0.0 Sodium Level 141 Potassium Level 4.0 Chloride Level 109 Carbon Dioxide Level 27 Anion Gap 9 Blood Urea Nitrogen 12 Creatinine 0.78 Glucose Level 119 Calcium Level 8.6 Total Bilirubin 0.3 Direct Bilirubin 0.00 Indirect Bilirubin 0.3 Aspartate Amino Transf (AST/SGOT) 35 Alanine Aminotransferase (ALT/SGPT) 45 Alkaline Phosphatase 85 Total Protein 5.7 L Albumin 3.3 Globulin 2.40 Albumin/Globulin Ratio 1.37 Medications Medications Current Medications Ondansetron HCl (Zofran Inj) 4 mg Q6H PRN IV NAUSEA AND/OR VOMITING; Start at 02:30 Acetaminophen (Tylenol Tab) 650 mg Q6H PRN PO PAIN AND OR ELEVATED TEMP; Start 04/25/17 at 02:30 Acetaminophen/ Hydrocodone Bitart ([place] (5/325)) 1 tab Q4H PRN PO PAIN LEVEL 4 -6 Last administered on 04/26/17 21:48; Admin Dose 1 TAB; Start 04/25/17 at 02: 30 Morphine Sulfate (morphine) 2 mg Q4H PRN IV PAIN LEVEL 7-10 Last administered on 04/26/17 19:55; Admin Dose 2 MG; Start 04/25/17 at 02:30 Docusate Sodium (Colace) 100 mg BID PRN PO constipation Last administered on 05:46; Admin Dose 100 MG; Start 04/25/17 at 02:30 Pantoprazole (Protonix Tab) 40 mg DAILY@06 PO Last administered on 04/27/17 06 :17; Admin Dose 40 MG; Start 04/25/17 at 06:00 Nystatin (Nystatin Cr) 1 applic BID TOP Last administered on 04/26/17 20:00; Admin Dose 1 APPLIC; Start 04/25/17 at 14:30 NAM MESSINA MD Apr 27, 2017 10:34
[2017-04-27] MEDS ORDERED: NYST15CR28 TOP (10:36)
--- NOTE | 2017-04-27 10:37 | PDOCDIS ---
Discharge Instructions DIAGNOSIS Discharge Diagnosis rash high white blood cell count, resolved CONDITION Patient Condition: Good HOME CARE INSTRUCTIONS: Diet Instructions: RegularSpecial Diet: REG ACTIVITY: Activity Restrictions: No Restrictions FOLLOW UP/APPOINTMENTS Follow-up Plan with primary care strongly recommend mental health evaluation NAM MESSINA MD Apr 27, 2017 10:37
--- NOTE | 2017-04-27 12:53 | DS ---
Date/Time of Note Date/Time of Note DATE: 04/27/17 TIME: 12:49 Discharge Summary Admission/Discharge Info Admit Date/Time Apr 25, 2017 at 01:36 Discharge Date/Time Apr 27, 2017 at 11:20 Discharge Diagnosis Note patient signed out AMA 1. Leukocytosis. This is likely reactive. 2. History of amphetamine-induced psychosis. 3. History of right inguinal hernia repair with no acute issues. 4. Hyperbilirubinemia, 5. Homelessness. Hospital Course The patient is a 56-year-old male with a history of psychiatric disorder, likely schizophrenia, although the patient does deny any psych issues. The patient has been at [facility] in the past and has been evaluated by psychiatry. The patient was previously diagnosed with amphetamine-induced psychosis. The patient presented to [facility] with the complaint of rectal pain. The patient did have a white count. He was transferred with the diagnosis of cellulitis in the perirectal area. Currently, he denies any significant itching in the actual rectum. He states that the itching is on the proximal thigh. The patient states that he had a colonoscopy recently at [facility], but results are not available on [employer]. It is unclear if this was actually done. The patient did have a right inguinal hernia repair in December of this year. During the examination there was no evidence of infection. Patient was found to have leukocytosis which was likely reactive. Patient was admitted to [facility] and was placed on prophylactic IV antibiotics and pain medication. This morning patient was planned to be discharged to facility although he decided to elope without notifying the nurse or nurse materials supervisor. By doing such act patient has taken all the risk upon himself. In case of worsening of her condition, infection, abdominal pain or any abdominal pathology patient has taken the risk by leaving the hospital without notifying any personal Home Meds Active Scripts Nystatin* (Nystatin*) 15 Gm Cr, 1 APPLIC TOP BID for 7 Days, #1 TUB Prov:NAM MESSINA MD 04/27/17 Reported Medications Omeprazole* (Omeprazole*) 40 Mg Capsule.dr, 40 MG PO DAILY, #30 CAP 04/20/17 Tamsulosin Hcl* (Flomax*) 0.4 Mg Cap.er.24h, 0.4 MG PO BID, CAP 05/29/16 Discontinued Scripts Oxycodone HCl/Acetaminophen (Percocet 10-325 mg Tablet) 1 Each Tablet, 1 EACH PO TID, #20 TAB Prov:MERVAT SIMONS 03/10/17 Hydrocodone/Acetaminophen ([place] 5-325 Tablet) 1 Each Tablet, 1 TAB PO Q6H Y for PAIN, #7 TAB Prov:WEISTUARTGERARDO Rashaad 12/19/16 Primary Care Provider Scott Puente MD Pending Labs Laboratory Tests Test 04/27/17 04:24 White Blood Count 6.710^3/ul (4.8-10.8) Red Blood Count 4.3110^6/ul (4.70-6.10) Hemoglobin 13.9g/dl (14.0-18.0) Hematocrit 40.2% (42.0-52.0) Mean Corpuscular Volume 93.3fl (82.0-101.0) Mean Corpuscular Hemoglobin 32.3pg (29.0-33.0) Mean Corpuscular Hemoglobin Concent 34.6g/dl (32.0-37.0) Red Cell Distribution Width 13.5% (11.5-14.5) Platelet Count 10871^3/UL (140-415) Mean Platelet Volume 10.6fl (7.4-10.4) Neutrophils % 45.6% (39.0-77.0) Lymphocytes % 39.3% (15.0-51.0) Monocytes % 8.4% (0.0-11.0) Eosinophils % 6.0% (0.0-7.0) Basophils % 0.4% (0.0-2.0) Nucleated Red Blood Cells % 0.0/100WBC (0.0-0.0) Neutrophils # 3.110^3/ul (1.6-7.5) Lymphocytes # 2.610^3/ul (0.8-2.9) Monocytes # 0.610^3/ul (0.3-0.9) Eosinophils # 0.410^3/ul (0.0-0.5) Basophils # 0.010^3/ul (0.0-0.1) Nucleated Red Blood Cells # 0.010^3/ul (0.0-0.0) Sodium Level 141mmol/L (135-144) Potassium Level 4.0mmol/L (3.5-5.1) Chloride Level 109mmol/L (97-110) Carbon Dioxide Level 27mmol/L (21-31) Anion Gap 9 (8-16) Blood Urea Nitrogen 12mg/dl (7-20) Creatinine 0.78mg/dl (0.61-1.24) Glucose Level 119mg/dl (70-220) Calcium Level 8.6mg/dl (8.4-10.2) Total Bilirubin 0.3mg/dl (0.2-1.3) Direct Bilirubin 0.00mg/dl (0.00-0.20) Indirect Bilirubin 0.3mg/dl (0-1.1) Aspartate Amino Transf (AST/SGOT) 35IU/L (15-46) Alanine Aminotransferase (ALT/SGPT) 45IU/L (13-69) Alkaline Phosphatase 85IU/L (42-121) Total Protein 5.7g/dl (6.1-8.1) Albumin 3.3g/dl (3.3-4.9) Globulin 2.40g/dl (1.3-3.2) Albumin/Globulin Ratio 1.37 TERRY SINGH MD Apr 27, 2017 12:53
--- NOTE | 2017-04-27 13:40 | DS ---
Date/Time of Note Date/Time of Note DATE: 04/27/17 TIME: 13:37 Discharge Summary Admission/Discharge Info Admit Date/Time Apr 25, 2017 at 01:36 Discharge Date/Time Apr 27, 2017 at 11:20 Discharge Diagnosis Note patient signed out AMA 1. Leukocytosis. This is likely reactive. 2. History of amphetamine-induced psychosis. 3. History of right inguinal hernia repair with no acute issues. 4. Hyperbilirubinemia, 5. Homelessness. Patient Condition: Good Consults social work case management Hx of Present Illness [facility] and concern for "rectal sellulitis". He was treated for intertrigo with nystatin and his "cellulitis" improved. His leukocytosis is felt to be reactive and not indicative of any infection; it spontaneously resolved. Patiet was offered numerous times to have social work and psychiatry assist him for homelessness and psychosis/paranoia respectively. However he reefused these interventions repeatedly. Prior to a formal discharge disposition being arranged for the patient he eloped from the hospital. Hospital Course The patient is a 56-year-old male with a history of psychiatric disorder, likely schizophrenia, although the patient does deny any psych issues. The patient has been at [facility] in the past and has been evaluated by psychiatry. The patient was previously diagnosed with amphetamine-induced psychosis. The patient presented to [facility] with the complaint of rectal pain. The patient did have a white count. He was transferred with the diagnosis of cellulitis in the perirectal area. Currently, he denies any significant itching in the actual rectum. He states that the itching is on the proximal thigh. The patient states that he had a colonoscopy recently at [facility], but results are not available on [employer]. It is unclear if this was actually done. The patient did have a right inguinal hernia repair in December of this year. During the examination there was no evidence of infection. Patient was found to have leukocytosis which was likely reactive. Patient was admitted to [facility] and was placed on prophylactic IV antibiotics and pain medication. This morning patient was planned to be discharged to facility although he decided to elope without notifying the nurse or nurse supervisor veneer. By doing such act patient has taken all the risk upon himself. In case of worsening of her condition, infection, abdominal pain or any abdominal pathology patient has taken the risk by leaving the hospital without notifying any personal Home Meds Active Scripts Nystatin* (Nystatin*) 15 Gm Cr, 1 APPLIC TOP BID for 7 Days, #1 TUB Prov:NAM MESSINA MD 04/27/17 Reported Medications Omeprazole* (Omeprazole*) 40 Mg Capsule.dr, 40 MG PO DAILY, #30 CAP 04/20/17 Tamsulosin Hcl* (Flomax*) 0.4 Mg Cap.er.24h, 0.4 MG PO BID, CAP 05/29/16 Discontinued Scripts Oxycodone HCl/Acetaminophen (Percocet 10-325 mg Tablet) 1 Each Tablet, 1 EACH PO TID, #20 TAB Prov:MERVAT SIMONS 03/10/17 Hydrocodone/Acetaminophen ([place] 5-325 Tablet) 1 Each Tablet, 1 TAB PO Q6H Y for PAIN, #7 TAB Prov:GERARDO HELMS 12/19/16 Primary Care Provider Scott Puente MD Pending Labs Laboratory Tests Test 04/27/17 04:24 White Blood Count 6.710^3/ul (4.8-10.8) Red Blood Count 4.3110^6/ul (4.70-6.10) Hemoglobin 13.9g/dl (14.0-18.0) Hematocrit 40.2% (42.0-52.0) Mean Corpuscular Volume 93.3fl (82.0-101.0) Mean Corpuscular Hemoglobin 32.3pg (29.0-33.0) Mean Corpuscular Hemoglobin Concent 34.6g/dl (32.0-37.0) Red Cell Distribution Width 13.5% (11.5-14.5) Platelet Count 73277^3/UL (140-415) Mean Platelet Volume 10.6fl (7.4-10.4) Neutrophils % 45.6% (39.0-77.0) Lymphocytes % 39.3% (15.0-51.0) Monocytes % 8.4% (0.0-11.0) Eosinophils % 6.0% (0.0-7.0) Basophils % 0.4% (0.0-2.0) Nucleated Red Blood Cells % 0.0/100WBC (0.0-0.0) Neutrophils # 3.110^3/ul (1.6-7.5) Lymphocytes # 2.610^3/ul (0.8-2.9) Monocytes # 0.610^3/ul (0.3-0.9) Eosinophils # 0.410^3/ul (0.0-0.5) Basophils # 0.010^3/ul (0.0-0.1) Nucleated Red Blood Cells # 0.010^3/ul (0.0-0.0) Sodium Level 141mmol/L (135-144) Potassium Level 4.0mmol/L (3.5-5.1) Chloride Level 109mmol/L (97-110) Carbon Dioxide Level 27mmol/L (21-31) Anion Gap 9 (8-16) Blood Urea Nitrogen 12mg/dl (7-20) Creatinine 0.78mg/dl (0.61-1.24) Glucose Level 119mg/dl (70-220) Calcium Level 8.6mg/dl (8.4-10.2) Total Bilirubin 0.3mg/dl (0.2-1.3) Direct Bilirubin 0.00mg/dl (0.00-0.20) Indirect Bilirubin 0.3mg/dl (0-1.1) Aspartate Amino Transf (AST/SGOT) 35IU/L (15-46) Alanine Aminotransferase (ALT/SGPT) 45IU/L (13-69) Alkaline Phosphatase 85IU/L (42-121) Total Protein 5.7g/dl (6.1-8.1) Albumin 3.3g/dl (3.3-4.9) Globulin 2.40g/dl (1.3-3.2) Albumin/Globulin Ratio 1.37 NAM MESSINA MD Apr 27, 2017 13:40
== END 2017-04-27 11:20 | disposition left against medical advice (07) | DRG 816 ==
LOC: MS1 01:36
PROVIDERS: ADMIT Internal Medicine; ATTEND Internal Medicine
DX: D72.828 Other elevated white blood cell count (principal); E80.6 Other disorders of bilirubin metabolism; Z59.0 Homelessness; F29 Unspecified psychosis not due to a substance or known physiological condition; K62.89 Other specified diseases of anus and rectum
CPT/HCPCS: 80053; 83036; 83735; 84100; 85025; J2270; J3370; J7050

== ENCOUNTER 2017-05-01 12:27 | Inpatient (IN) | payer MEDICAID, OTHER ==
[~2017-05-01] VITALS: Ht 172.7 cm; Wt 85.0 kg
[~2017-05-01 12:27] MED LIST changes: +NYST15CR28 TOP
[2017-05-01] MEDS ORDERED: SODIUM CHLORIDE 0.9% 1L BAG IV* STA (12:54)
[2017-05-01] MEDS ORDERED: VANCOMYCIN 1 GM (PMX) 250 ML IVPB ONE (13:00)
[2017-05-01 13:29] LABS: BASOPHILS % 0.3 % (0.0-2.0); HEMATOCRIT 48.2 % (42.0-52.0); HEMOGLOBIN 17.2 g/dl (14.0-18.0); LYMPHOCYTES # 1.2 10^3/ul (0.8-2.9); LYMPHOCYTES % 8.4 % (15.0-51.0); MEAN CORPUSCULAR HEMOGLOBIN 33.3 pg (29.0-33.0); MEAN CORPUSCULAR HGB CONC 35.7 g/dl (32.0-37.0); MEAN CORPUSCULAR VOLUME 93.4 fl (82.0-101.0); MEAN PLATELET VOLUME 10.2 fl (7.4-10.4); NEUTROPHIL # 11.4 10^3/ul (1.6-7.5); NEUTROPHILS % 83.9 % (39.0-77.0); PLATELET COUNT 227 10^3/UL (140-415); RED BLOOD COUNT 5.16 10^6/ul (4.70-6.10); RED CELL DISTRIBUTION WIDTH 13.5 % (11.5-14.5); WHITE BLOOD COUNT 13.6 10^3/ul (4.8-10.8)
[2017-05-01 13:45] LABS: INR 0.99; PARTIAL THROMBOPLASTIN TIME 25.2 Sec (25.0-35.0); PROTIME 13.1 Sec (12.2-14.2)
[2017-05-01 13:48] LABS: ALBUMIN 5.2 g/dl (3.3-4.9); ALBUMIN/GLOBULIN RATIO 1.62; CALCIUM 9.7 mg/dl (8.4-10.2); CREATININE 1.93 mg/dl (0.61-1.24); POTASSIUM 4.7 mmol/L (3.5-5.1); TOTAL PROTEIN 8.4 g/dl (6.1-8.1)
--- NOTE | 2017-05-01 13:53 | RADRPT ---
PROCEDURE: XR Chest 1 View. CLINICAL INDICATION: Shortness of breath, sepsis. TECHNIQUE: AP view of the chest was obtained. COMPARISON: May 29, 2016 FINDINGS: The cardiomediastinal silhouette is within normal limits. Subsegmental atelectasis is noted at the l evelyn bases. Osseous structures are intact. IMPRESSION: Subsegmental atelectasis at the lung bases. RPTAT: AA .Pienda Estevez MD, MD Date Time Electronically viewed and signed by .Pineda Estevez MD, on 05/01/2017 13:52 .P/
[2017-05-01 13:59] LABS: TROPONIN-I 0.033 ng/ml (0.00-0.12)
[2017-05-01] MEDS ORDERED: CEFEPIME 1GM/50 ML (PMX) 50 ML IVPB ONE (15:30)
[2017-05-01] MEDS ORDERED: ACETAMINOPHEN 325 MG TAB PO ONE (17:00)
[2017-05-01] MEDS ORDERED: ONDANSETRON 4 MG INJ IV PRN (17:00)
[2017-05-01] MEDS ORDERED: ACETAMINOPHEN 325 MG TAB PO PRN ×2 (17:00→18:00)
--- NOTE | 2017-05-01 17:44 | HP ---
Date/Time of Note Date/Time of Note DATE: 05/01/17 TIME: 17:33 Assessment/Plan VTE Prophylaxis VTE Prophylaxis Intervention: SCD's Assessment/Plan Assessment/Plan 56 yo M with pmhx methamphetamine induced psychosis presents with erythema to bl ankles concerning for cellulitis given leukocytosis. Pt meets sepsis criteria given tachycardia (though may 2/2 substance abuse), leukocytosis and ankle erythema concerning for skin/soft tissue infection. Also with LESLEY PLAN cont empiric abx, ancef for strep coverage. red patch without evidence of blister or pustule much more clinically consistent with strep than staph as causative origin LESLEY: IVFs. 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 Of note pt recently admitted to this facility 6.25-6.27 for c/o ?rectal ceullulitis. Denied rectal itching on arrival. Started on empiric abx. Eloped after 48 hours without telling anyone. Pt previously evaluated by psychiatry and diagnosed with methamphetamine induced psychosis. Today pt states that his ankles have been red for the past few days. He states that this is because of lasers from the government. PMH/Family/Social Past Medical History as per [facility] Social History homeless Smoking Status: Former smoker Exam/Review of Systems Vital Signs Vitals Vital Signs Date Time Temp Pulse Resp B/P Pulse Ox O2 Delivery O2 Flow Rate FiO2 05/01/17 13:08 Nasal Cannula 05/01/17 12:38 98.0 150 19 151/82 94 Exam Exam sunburn of face/UEs. multiple tattoos MMM EOMI moves exts freely no mrg lungs clear abd soft erythema noted to bl ankles. On R ankle 4 cm round nonblanching patch to anterior aspect of lower leg extending from just above foot. On L ankle large ~ 8x 6 cm erythematous patch extending proximally from ankle. Borders of both patches marked in pen and dated WBCs 13s, lactate slightly high Labs Result Diagram: 05/01/17 1310 05/01/17 1310 CARLOS MARROQUIN MD May 01, 2017 17:43
[2017-05-01] MEDS ORDERED: NACL 0.9% 3 ML SYG IV SCH (18:00)
[2017-05-01] MEDS ORDERED: ONDANSETRON 4 MG TAB PO PRN (18:00)
[2017-05-01 18:11] LABS: ADD UMIC YES; UR ASCORBIC ACID NEGATIVE (NEGATIVE); UR BACTERIA FEW /HPF (NONE SEEN); UR BILIRUBIN (Dip) NEGATIVE (NEGATIVE); UR BLOOD (Dip) 1+ mg/dL (NEGATIVE); UR CLARITY SLIGHTLY CLOUDY (CLEAR); UR COLOR YELLOW (YELLOW); UR GLUCOSE (Dip) NEGATIVE (NEGATIVE); UR KETONES (Dip) 1+ mg/dL (NEGATIVE); UR LEUKOCYTE ESTERASE (Dip) NEGATIVE Leu/ul (NEGATIVE); UR MUCUS FEW /HPF (NONE SEEN); UR NITRITE (Dip) NEGATIVE (NEGATIVE); UR RBC 0 /HPF (0-5); UR TOTAL PROTEIN (Dip) 1+ mg/dl (NEGATIVE); UR UROBILINOGEN (Dip) NEGATIVE (NEGATIVE)
[2017-05-01 18:45] VITALS: TEMP 97.8
[2017-05-01] MEDS: morphine 2 MG INJ IV PRN (18:45)
[2017-05-01] MEDS: SOD CHLORIDE 0.9% 1,000 ML IV SCH (18:46)
[2017-05-01] MEDS: CEFAZOLIN 1 GM/50 ML (PMX) 50 ML IVPB SCH (18:46)
[2017-05-01 19:45] VITALS: BP 104/68; PULSE 86; RESP 20; Ht 172.7 cm; Wt 85.0 kg
[2017-05-01 20:25] LABS: BARBITURATES NEGATIVE (NEGATIVE); BENZODIAZEPINES NEGATIVE (NEGATIVE); CANNABINOIDS NEGATIVE (NEGATIVE); COCAINE NEGATIVE (NEGATIVE); OPIATES NEGATIVE (NEGATIVE)
[2017-05-01 21:44] VITALS: BP 104/68; RESP 20
[2017-05-01] MEDS: HYDROCODONE/APAP (5/325) TAB PO PRN (22:08)
[2017-05-02] MEDS: CEFAZOLIN 1 GM/50 ML (PMX) 50 ML IVPB SCH ×3 (02:31→18:56)
[2017-05-02] MEDS: SOD CHLORIDE 0.9% 1,000 ML IV SCH ×2 (02:31→10:00)
[2017-05-02] MEDS: morphine 2 MG INJ IV PRN ×4 (03:14→19:49)
[2017-05-02 05:53] LABS: BASOPHILS % 0.3 % (0.0-2.0); EOSINOPHILS # 0.2 10^3/ul (0.0-0.5); HEMATOCRIT 40.3 % (42.0-52.0); HEMOGLOBIN 14.1 g/dl (14.0-18.0); LYMPHOCYTES # 2.6 10^3/ul (0.8-2.9); LYMPHOCYTES % 24.6 % (15.0-51.0); MEAN CORPUSCULAR HEMOGLOBIN 32.5 pg (29.0-33.0); MEAN CORPUSCULAR VOLUME 92.9 fl (82.0-101.0); MEAN PLATELET VOLUME 10.4 fl (7.4-10.4); MONOCYTE # 1.2 10^3/ul (0.3-0.9); MONOCYTES % 11.1 % (0.0-11.0); NEUTROPHIL # 6.5 10^3/ul (1.6-7.5); NEUTROPHILS % 61.5 % (39.0-77.0); PLATELET COUNT 212 10^3/UL (140-415); RED BLOOD COUNT 4.34 10^6/ul (4.70-6.10); RED CELL DISTRIBUTION WIDTH 13.5 % (11.5-14.5); WHITE BLOOD COUNT 10.5 10^3/ul (4.8-10.8)
[2017-05-02 06:09] LABS: CALCIUM 8.3 mg/dl (8.4-10.2); CREATININE 0.95 mg/dl (0.61-1.24); POTASSIUM 3.9 mmol/L (3.5-5.1)
[2017-05-02 06:37] LABS: ADD SCAN DIFF NO
[2017-05-02 07:30] VITALS: BP 113/63; RESP 18
[2017-05-02] MEDS: ENOXAPARIN 40 MG/0.4 ML SYG SC SCH (08:20)
[2017-05-02 08:21] LABS: ALBUMIN 3.3 g/dl (3.3-4.9); BILIRUBIN,INDIRECT 1.5 mg/dl (0-1.1); BILIRUBIN,TOTAL 1.5 mg/dl (0.2-1.3); TOTAL PROTEIN 5.7 g/dl (6.1-8.1)
--- NOTE | 2017-05-02 13:10 | PN ---
Date/Time of Note Date/Time of Note DATE: 05/02/17 TIME: 13:09 Assessment/Plan VTE Prophylaxis VTE Prophylaxis Intervention: SCD's Lines/Catheters IV Catheter Type (from Nrs): Peripheral IV Assessment/Plan Assessment/Plan 56 yo M with pmhx methamphetamine induced psychosis presents with erythema to bl ankles concerning for cellulitis given leukocytosis. Pt meets sepsis criteria given tachycardia (though march 02 substance abuse), leukocytosis and ankle erythema concerning for skin/soft tissue infection. Also with LESLEY--> resolved. PLAN cont ancef. consider changing to keflex tomorrow stop IVFs meth cessation advised ankle xrs general diet, push PO fluids DVT prophx Subjective 24 Hr Interval Summary Free Text/Dictation States his ankles still hurt. States he used meth 1 day prior to admission. Not interested in stopping Exam/Review of Systems Vital Signs Vitals Vital Signs Date Time Temp Pulse Resp B/P Pulse Ox O2 Delivery O2 Flow Rate FiO2 05/02/17 07:30 97.9 69 18 113/63 94 05/01/17 19:45 Room Air Intake and Output 05/01/17 05/01/17 05/02/17 15:00 23:00 07:00 Intake Total 350 ml 2370 ml Balance 350 ml 2370 ml Exam nad, laying in bed no mrg lungs clear abd soft bl ankle erythema sig improving. no calf swelling. Results Result Diagram: 05/02/17 0435 05/02/17 0435 Results 24 hrs Laboratory Tests Test 05/01/17 13:10 05/01/17 17:45 05/01/17 18:45 05/01/17 18:55 White Blood Count 13.6 #H Red Blood Count 5.16 Hemoglobin 17.2 # Hematocrit 48.2 Mean Corpuscular Volume 93.4 Mean Corpuscular Hemoglobin 33.3 H Mean Corpuscular Hemoglobin Concent 35.7 Red Cell Distribution Width 13.5 Platelet Count 227 Mean Platelet Volume 10.2 Neutrophils % 83.9 H Lymphocytes % 8.4 L Monocytes % 7.0 Eosinophils % 0.0 Basophils % 0.3 Nucleated Red Blood Cells % 0.0 Neutrophils # 11.4 H Lymphocytes # 1.2 Monocytes # 1.0 H Eosinophils # 0.0 Basophils # 0.0 Nucleated Red Blood Cells # 0.0 Prothrombin Time 13.1 Prothrombin Time Ratio 1.0 INR International Normalized Ratio 0.99 Activated Partial Thromboplast Time 25.2 Sodium Level 141 Potassium Level 4.7 Chloride Level 100 Carbon Dioxide Level 21 Anion Gap 25 H Blood Urea Nitrogen 25 H Creatinine 1.93 H Glucose Level 70 Lactic Acid Level 2.5 H 1.1 3.3 H Calcium Level 9.7 Total Bilirubin 3.0 H Direct Bilirubin 0.00 Indirect Bilirubin 3.0 H Aspartate Amino Transf (AST/SGOT) 70 H Alanine Aminotransferase (ALT/SGPT) 58 Alkaline Phosphatase 88 Troponin I 0.033 Total Protein 8.4 H Albumin 5.2 H Globulin 3.20 Albumin/Globulin Ratio 1.62 Ethyl Alcohol Level < 10.0 Urine Color YELLOW Urine Clarity SLIGHTLY CLOUDY A Urine pH 5.0 Urine Specific [place] 1.020 Urine Ketones 1+ H Urine Nitrite NEGATIVE Urine Bilirubin NEGATIVE Urine Urobilinogen NEGATIVE Urine Leukocyte Esterase NEGATIVE Urine Microscopic RBC 0 Urine Microscopic WBC 2 Urine Bacteria FEW A Urine Mucus FEW A Urine Hemoglobin 1+ H Urine Glucose NEGATIVE Urine Total Protein 1+ H Urine Opiates Screen NEGATIVE Urine Barbiturates NEGATIVE Urine Amphetamines Screen POSITIVE Urine Benzodiazepines Screen NEGATIVE Urine Cocaine Screen NEGATIVE Urine Cannabinoids NEGATIVE Test 05/02/17 04:35 05/02/17 11:15 White Blood Count 10.5 # Red Blood Count 4.34 L Hemoglobin 14.1 Hematocrit 40.3 L Mean Corpuscular Volume 92.9 Mean Corpuscular Hemoglobin 32.5 Mean Corpuscular Hemoglobin Concent 35.0 Red Cell Distribution Width 13.5 Platelet Count 212 Mean Platelet Volume 10.4 Neutrophils % 61.5 Lymphocytes % 24.6 Monocytes % 11.1 H Eosinophils % 2.0 Basophils % 0.3 Nucleated Red Blood Cells % 0.0 Neutrophils # 6.5 Lymphocytes # 2.6 Monocytes # 1.2 H Eosinophils # 0.2 Basophils # 0.0 Nucleated Red Blood Cells # 0.0 Sodium Level 139 Potassium Level 3.9 Chloride Level 103 Carbon Dioxide Level 24 Anion Gap 16 # Blood Urea Nitrogen 23 H Creatinine 0.95 Glucose Level 96 Calcium Level 8.3 L Total Bilirubin 1.5 H Direct Bilirubin 0.00 Indirect Bilirubin 1.5 H Aspartate Amino Transf (AST/SGOT) 48 H Alanine Aminotransferase (ALT/SGPT) 50 Alkaline Phosphatase 59 Total Protein 5.7 #L Albumin 3.3 # Lactic Acid Level 1.0 Medications Medications Current Medications Ondansetron HCl (Zofran Tab) 4 mg Q6H PRN PO NAUSEA AND/OR VOMITING; Start 05/01 at 18:00 Acetaminophen (Tylenol Tab) 650 mg Q6H PRN PO PAIN LEVEL 1-3 OR FEVER; Start at 18:00 Acetaminophen/ Hydrocodone Bitart ([place] (5/325)) 1 tab Q6H PRN PO MODERATE PAIN LEVEL 4-6 Last administered on 05/01/17 22:08; Admin Dose 1 TAB; Start 05/01 at 18:00 Morphine Sulfate (morphine) 2 mg Q4H PRN IV SEVERE PAIN LEVEL 7-10 Last administered on 05/02/17 08:19; Admin Dose 2 MG; Start 05/01/17 at 18:00 Enoxaparin Sodium 40 mg 40 mg DAILY SC Last administered on 05/02/17 08:20; Admin Dose 40 MG; Start 05/02/17 at 09:00 Cefazolin Sodium 50 ml @ 100 mls/hr Q8H IVPB Last administered on 05/02/17 10: 10; Admin Dose 100 MLS/HR; Start 05/01/17 at 18:00 Sodium Chloride (NS) 1,000 ml @ 125 mls/hr Q8H IV Last administered on 02:31; Admin Dose 125 MLS/HR; Start 05/01/17 at 18:00 CARLOS MARROQUIN MD May 02, 2017 13:10
--- NOTE | 2017-05-02 21:19 | RADRPT ---
PROCEDURE: XR bilateral ankles.. CLINICAL INDICATION: Ankle pain. TECHNIQUE: AP and lateral views of the bilateral ankles were performed. COMPARISON: There are no similar studies submitted for comparison. FINDINGS: There is normal bone mineralization. There is no acute fracture or dislocation. There is a left os trigonum. The ankle mortise is intact. No osseous lesion is identified. There is left medial malleolar soft tissue swelling. IMPRESSION: No acute fracture or dislocation. Left medial malleolar soft tissue swelling. Further findings as detailed above. RPTAT: PP .Misha Robertson MD, Date Time Electronically viewed and signed by .Misha Robertson MD, on 05/02/2017 21:19 .F/
[2017-05-02 21:33] VITALS: BP 109/71; RESP 18
[2017-05-03] MEDS: morphine 2 MG INJ IV PRN ×6 (00:12→22:38)
[2017-05-03] MEDS: CEFAZOLIN 1 GM/50 ML (PMX) 50 ML IVPB SCH (02:20)
[2017-05-03 06:43] LABS: CALCIUM 8.1 mg/dl (8.4-10.2); CREATININE 0.74 mg/dl (0.61-1.24); POTASSIUM 4.1 mmol/L (3.5-5.1)
[2017-05-03 08:22] VITALS: BP 121/87; RESP 18
[2017-05-03] MEDS: ENOXAPARIN 40 MG/0.4 ML SYG SC SCH (08:40)
--- NOTE | 2017-05-03 10:20 | PN ---
Date/Time of Note Date/Time of Note DATE: 05/03/17 TIME: 10:19 Assessment/Plan VTE Prophylaxis VTE Prophylaxis Intervention: SCD's Lines/Catheters IV Catheter Type (from Nrsg): Saline Lock Urinary Cath still in place: No Assessment/Plan Assessment/Plan 56 yo M with pmhx methamphetamine induced psychosis presents with erythema to bl ankles concerning for cellulitis given leukocytosis. Pt meets sepsis criteria given tachycardia (though may / substance abuse), leukocytosis and ankle erythema concerning for skin/soft tissue infection. Also with LESLEY--> resolved. PLAN change abx from ancef to keflex meth cessation advised previously check LE duplex to r/o DVT leg elevation general diet, push PO fluids DVT prophx anticipate discharge in AM Subjective 24 Hr Interval Summary Free Text/Dictation Pt still concerned that his legs are swollen because "they" (the [employer]) are shooting him with lasers. requesting PPI Exam/Review of Systems Vital Signs Vitals Vital Signs Date Time Temp Pulse Resp B/P Pulse Ox O2 Delivery O2 Flow Rate FiO2 05/03/17 08:22 97.2 73 18 121/87 96 05/01/17 19:45 Room Air Intake and Output 05/02/17 05/02/17 05/03/17 15:00 23:00 07:00 Intake Total 1290 ml 530 ml Balance 1290 ml 530 ml Exam nad, laying in bed no mrg lungs clear abd soft trace bl ankle edema erythema 90% improved ankle xr without fracture, just soft tissue swelling Results Result Diagram: 05/02/17 0435 05/03/17 0441 Results 24 hrs Laboratory Tests Test 05/02/17 11:15 05/03/17 04:41 Lactic Acid Level 1.0 Sodium Level 138 Potassium Level 4.1 Chloride Level 106 Carbon Dioxide Level 27 Anion Gap 9 # Blood Urea Nitrogen 11 # Creatinine 0.74 Glucose Level 93 Calcium Level 8.1 L Medications Medications Current Medications Ondansetron HCl (Zofran Tab) 4 mg Q6H PRN PO NAUSEA AND/OR VOMITING; Start 05/01 at 18:00 Acetaminophen (Tylenol Tab) 650 mg Q6H PRN PO PAIN LEVEL 1-3 OR FEVER; Start at 18:00 Acetaminophen/ Hydrocodone Bitart ([place] (5/325)) 1 tab Q6H PRN PO MODERATE PAIN LEVEL 4-6 Last administered on 05/01/17 22:08; Admin Dose 1 TAB; Start 05/01 at 18:00 Morphine Sulfate (morphine) 2 mg Q4H PRN IV SEVERE PAIN LEVEL 7-10 Last administered on 05/03/17 08:41; Admin Dose 2 MG; Start 05/01/17 at 18:00 Enoxaparin Sodium 40 mg 40 mg DAILY SC Last administered on 05/03/17 08:40; Admin Dose 40 MG; Start 05/02/17 at 09:00 Cefazolin Sodium (Ancef 1 Gm/50 ml (Pmx)) 50 ml @ 100 mls/hr Q8H IVPB Last administered on 05/03/17 02:20; Admin Dose 100 MLS/HR; Start 05/01/17 at 18:00 CARLOS MARROQUIN MD May 03, 2017 10:20
[2017-05-03] MEDS ORDERED: PANTOPRAZOLE (EC) 40 MG TAB PO ONE (10:30)
--- NOTE | 2017-05-03 11:55 | RADRPT ---
PROCEDURE: US bilateral lower extremity veins. CLINICAL INDICATION: Bilateral leg pain and swelling. TECHNIQUE: Multiple longitudinal and transverse images of the bilateral lower extremity veins were obtained with molina scale and color Doppler imaging. The common femoral vein, femoral vein, and popl iteal vein were evaluated. 2D grayscale measurements with compression sonography, color Doppler, and pulsed Doppler with augmentation. COMPARISON: No prior studies are available for comparison. FINDINGS: The bilateral common femoral, femoral and popliteal veins are normally compressible throughout. Col or flow demonstrates normal filling of the vessels. Normal waveforms are visualized and there is no rmal response to augmentation. IMPRESSION: 1. No evidence of deep vein thrombosis involving either lower extremity. RPTAT: QQ .Sudhakar Crocker MD, MD Date Time Electronically viewed and signed by .Sudhakar Crocker MD, on 05/03/2017 11:55 .R/
[2017-05-03] MEDS: CEPHALEXIN 500 MG CAP PO SCH ×3 (12:21→23:47)
[2017-05-03 20:42] VITALS: BP 131/83; RESP 16
[2017-05-04] MEDS: morphine 2 MG INJ IV PRN ×6 (02:42→23:57)
[2017-05-04] MEDS: PANTOPRAZOLE (EC) 40 MG TAB PO SCH (05:52)
[2017-05-04] MEDS: CEPHALEXIN 500 MG CAP PO SCH ×4 (05:52→23:58)
[2017-05-04 08:00] VITALS: BP 120/68; RESP 16
[2017-05-04] MEDS: ENOXAPARIN 40 MG/0.4 ML SYG SC SCH (08:33)
--- NOTE | 2017-05-04 09:53 | PN ---
Date/Time of Note Date/Time of Note DATE: 05/04/17 TIME: 09:51 Assessment/Plan VTE Prophylaxis VTE Prophylaxis Intervention: LMWH Lines/Catheters [facility] Saline Lock Urinary Cath still in place: No Assessment/Plan Chief Complaint/Hosp Course 1. Bilateral lower extremity cellulitis. Continue antibiotics. Improving. 2. Substance abuse. Cessation advised. 3. Methamphetamine induced psychosis. Patient denies any hallucinations at this time. 4. Acute kidney injury. Resolved. 5. Homeless status. collision worker following. 6. Fluids, electrolytes, and nutrition. Regular diet as tolerated. 7. DVT prophylaxis. Subcutaneous Lovenox. 8. Gastrointestinal prophylaxis. Proton pump inhibitors. 9. Plan. Continue antibiotics. Continue elevation of bilateral lower extremities. Discharge once clinically stable. Case discussed with Dr. Angel. Problems: Subjective 24 Hr Interval Summary Free Text/Dictation Remains afebrile. Exam/Review of Systems Vital Signs Vitals Vital Signs Date Time Temp Pulse Resp B/P Pulse Ox O2 Delivery O2 Flow Rate FiO2 05/04/17 08:00 98.1 70 16 120/68 96 05/01/17 19:45 Room Air Intake and Output 05/03/17 05/03/17 05/04/17 15:00 23:00 07:00 Intake Total 1620 ml 550 ml Balance 1620 ml 550 ml Exam General: Adequately build 56 year-old male lying in bed in no apparent distress. HEENT: Normocephalic, atraumatic. Eyes: Anicteric sclerae, conjunctivae clear. ENT: Nasal septum midline, oral mucosa moist. Neck supple, no JVD noticed. Respiratory: Bilaterally clear breath sounds. No use of accessory muscles of respiration. No adventitious breath sounds. Cardiovascular: S1, S2 heard. No murmurs or gallops. Abdomen: Soft, nontender, and nondistended. Bowel sounds positive in all 4 quadrants. Genitourinary: Deferred. Extremities: No cyanosis, no clubbing. Peripheral pulses palpable. Bilateral lower extremity erythema and edema. Neurologic: Cranial nerves II through XII grossly intact. The patient is awake, alert, and oriented. Skin: Normal skin turgor. Multiple tattoos. Results Result Diagram: 05/02/17 0435 05/03/17 0441 Medications Medications Current Medications Ondansetron HCl (Zofran Tab) 4 mg Q6H PRN PO NAUSEA AND/OR VOMITING; Start 05/01 at 18:00 Acetaminophen (Tylenol Tab) 650 mg Q6H PRN PO PAIN LEVEL 1-3 OR FEVER; Start at 18:00 Acetaminophen/ Hydrocodone Bitart ([place] (5/325)) 1 tab Q6H PRN PO MODERATE PAIN LEVEL 4-6 Last administered on 05/01/17 22:08; Admin Dose 1 TAB; Start 05/01 at 18:00 Morphine Sulfate (morphine) 2 mg Q4H PRN IV SEVERE PAIN LEVEL 7-10 Last administered on 05/04/17 06:53; Admin Dose 2 MG; Start 05/01/17 at 18:00 Enoxaparin Sodium (Lovenox) 40 mg DAILY SC Last administered on 05/04/17 08:33 ; Admin Dose 40 MG; Start 05/02/17 at 09:00 Cephalexin (Keflex) 500 mg Q6 PO Last administered on 05/04/17 05:52; Admin Dose 500 MG; Start 05/03/17 at 12:00 Pantoprazole (Protonix Tab) 40 mg DAILY@06 PO Last administered on 05/04/17 05: 52; Admin Dose 40 MG; Start 05/04/17 at 06:00 SHANELL HILL NP May 04, 2017 09:53
[2017-05-04] MEDS: HYDROCODONE/APAP (5/325) TAB PO PRN (12:47)
[2017-05-04 20:16] VITALS: BP 122/79; RESP 16
[2017-05-05] MEDS: morphine 2 MG INJ IV PRN ×3 (04:12→12:17)
[2017-05-05 05:10] LABS: ADD SCAN DIFF NO
[2017-05-05 05:20] LABS: BASOPHILS % 0.6 % (0.0-2.0); EOSINOPHILS # 0.4 10^3/ul (0.0-0.5); EOSINOPHILS % 6.8 % (0.0-7.0); HEMATOCRIT 45.1 % (42.0-52.0); HEMOGLOBIN 15.4 g/dl (14.0-18.0); LYMPHOCYTES # 2.1 10^3/ul (0.8-2.9); LYMPHOCYTES % 33.8 % (15.0-51.0); MEAN CORPUSCULAR HEMOGLOBIN 32.2 pg (29.0-33.0); MEAN CORPUSCULAR HGB CONC 34.1 g/dl (32.0-37.0); MEAN CORPUSCULAR VOLUME 94.4 fl (82.0-101.0); MEAN PLATELET VOLUME 10.4 fl (7.4-10.4); MONOCYTE # 0.6 10^3/ul (0.3-0.9); MONOCYTES % 9.7 % (0.0-11.0); NEUTROPHILS % 48.6 % (39.0-77.0); PLATELET COUNT 216 10^3/UL (140-415); RED BLOOD COUNT 4.78 10^6/ul (4.70-6.10); RED CELL DISTRIBUTION WIDTH 13.5 % (11.5-14.5); WHITE BLOOD COUNT 6.2 10^3/ul (4.8-10.8)
[2017-05-05 05:31] LABS: CALCIUM 9.2 mg/dl (8.4-10.2); CREATININE 0.82 mg/dl (0.61-1.24); POTASSIUM 4.1 mmol/L (3.5-5.1)
[2017-05-05] MEDS: CEPHALEXIN 500 MG CAP PO SCH ×2 (05:45→11:17)
[2017-05-05] MEDS: PANTOPRAZOLE (EC) 40 MG TAB PO SCH (05:45)
[2017-05-05 05:56] LABS: MAGNESIUM 1.8 mg/dl (1.7-2.5); PHOSPHORUS 3.6 mg/dl (2.5-4.9)
[2017-05-05 08:05] VITALS: BP 123/82; RESP 20
[2017-05-05] MEDS: ENOXAPARIN 40 MG/0.4 ML SYG SC SCH (08:05)
[2017-05-05] MEDS: HYDROCODONE/APAP (5/325) TAB PO PRN (09:27)
--- NOTE | 2017-05-05 11:36 | PN ---
Date/Time of Note Date/Time of Note DATE: 05/05/17 TIME: 11:34 Assessment/Plan VTE Prophylaxis VTE Prophylaxis Intervention: LMWH Lines/Catheters IV [facility]from [facility] Saline Lock Urinary Cath still in place: No Assessment/Plan Chief Complaint/Hosp Course 1. Bilateral lower extremity cellulitis. Continue antibiotics. Improving. 2. Substance abuse. Cessation advised. 3. Methamphetamine induced psychosis. Patient denies any hallucinations at this time. 4. Acute kidney injury. Resolved. 5. Homeless status. telephone sex worker following. 6. Fluids, electrolytes, and nutrition. Regular diet as tolerated. 7. DVT prophylaxis. Subcutaneous Lovenox. 8. Gastrointestinal prophylaxis. Proton pump inhibitors. 9. Plan. Continue antibiotics. Continue elevation of bilateral lower extremities. Discharge once clinically stable. Case discussed with Dr. Angel. Problems: Subjective 24 Hr Interval Summary Free Text/Dictation The patient remains afebrile. Vital signs stable. Exam/Review of Systems Vital Signs Vitals Vital Signs Date Time Temp Pulse Resp B/P Pulse Ox O2 Delivery O2 Flow Rate FiO2 05/05/17 08:05 98.3 65 20 123/82 98 05/01/17 19:45 Room Air Intake and Output 05/04/17 05/04/17 05/05/17 15:00 23:00 07:00 Intake Total 1850 ml 1000 ml Balance 1850 ml 1000 ml Exam General: Adequately build 56 year-old male lying in bed in no apparent distress. HEENT: Normocephalic, atraumatic. Eyes: Anicteric sclerae, conjunctivae clear. ENT: Nasal septum midline, oral mucosa moist. Neck supple, no JVD noticed. Respiratory: Bilaterally clear breath sounds. No use of accessory muscles of respiration. No adventitious breath sounds. Cardiovascular: S1, S2 heard. No murmurs or gallops. Abdomen: Soft, nontender, and nondistended. Bowel sounds positive in all 4 quadrants. Genitourinary: Deferred. Extremities: No cyanosis, no clubbing. Peripheral pulses palpable. Bilateral lower extremity erythema and edema. Neurologic: Cranial nerves II through XII grossly intact. The patient is awake, alert, and oriented. Skin: Normal skin turgor. Multiple tattoos. Results Result Diagram: 05/05/17 0420 05/05/17 042 Results 24 hrs Laboratory Tests Test 05/04/17 15:10 05/05/17 04:20 Vitamin D 1,25-Dihydroxy 61.9 White Blood Count 6.2 # Red Blood Count 4.78 Hemoglobin 15.4 Hematocrit 45.1 Mean Corpuscular Volume 94.4 Mean Corpuscular Hemoglobin 32.2 Mean Corpuscular Hemoglobin Concent 34.1 Red Cell Distribution Width 13.5 Platelet Count 216 Mean Platelet Volume 10.4 Neutrophils % 48.6 Lymphocytes % 33.8 Monocytes % 9.7 Eosinophils % 6.8 Basophils % 0.6 Nucleated Red Blood Cells % 0.0 Neutrophils # 3.0 Lymphocytes # 2.1 Monocytes # 0.6 Eosinophils # 0.4 Basophils # 0.0 Nucleated Red Blood Cells # 0.0 Sodium Level 142 Potassium Level 4.1 Chloride Level 99 Carbon Dioxide Level 29 Anion Gap 18 #H Blood Urea Nitrogen 13 Creatinine 0.82 Glucose Level 98 Calcium Level 9.2 Phosphorus Level 3.6 Magnesium Level 1.8 Medications Medications Current Medications Ondansetron HCl (Zofran Tab) 4 mg Q6H PRN PO NAUSEA AND/OR VOMITING; Start 05/01 at 18:00 Acetaminophen (Tylenol Tab) 650 mg Q6H PRN PO PAIN LEVEL 1-3 OR FEVER; Start at 18:00 Acetaminophen/ Hydrocodone Bitart ([place] (5/325)) 1 tab Q6H PRN PO MODERATE PAIN LEVEL 4-6 Last administered on 05/05/17 09:27; Admin Dose 1 TAB; Start 05/01 at 18:00 Morphine Sulfate (morphine) 2 mg Q4H PRN IV SEVERE PAIN LEVEL 7-10 Last administered on 05/05/17 08:14; Admin Dose 2 MG; Start 05/01/17 at 18:00 Enoxaparin Sodium (Lovenox) 40 mg DAILY SC Last administered on 05/05/17 08:05 ; Admin Dose 40 MG; Start 05/02/17 at 09:00 Cephalexin (Keflex) 500 mg Q6 PO Last administered on 05/05/17 11:17; Admin Dose 500 MG; Start 05/03/17 at 12:00 Pantoprazole (Protonix Tab) 40 mg DAILY@06 PO Last administered on 05/05/17 05: 45; Admin Dose 40 MG; Start 05/04/17 at 06:00 SHANELL HILL NP May 05, 2017 11:35
--- NOTE | 2017-05-05 12:09 | PDOCDIS ---
Discharge Instructions DIAGNOSIS Discharge Diagnosis Bilateral lower extremity cellulitis. Substance abuse. CONDITION Patient Condition: Stable HOME CARE INSTRUCTIONS: Special Diet: REGULAR FOLLOW UP/APPOINTMENTS Follow-up Plan Dharmesh Grover MD Specialty: Internal Medicine Office Address: [address] [place], [place] [id number] Office OTHER ORDERS: Other Orders: 1. Take medications as per prescription. 2. Avoid using recreational drugs. 3. Take a regular diet as tolerated. 4. Follow-up with your primary care physician 1 week. If you do not have a primary care physician, please call Dr. Dharmesh Grover's office. SHANELL HILL NP May 05, 2017 12:09
[2017-05-05] MEDS ORDERED: CEPH500C PO (12:10)
[2017-05-05] MEDS ORDERED: HYDR-902 PO (12:10)
--- NOTE | 2017-05-05 12:49 | DS ---
Date/Time of Note Date/Time of Note DATE: 05/05/17 TIME: 12:46 Discharge Summary Admission/Discharge Info Admit Date/Time May 01, 2017 at 16:49 Discharge Date/Time Discharge Diagnosis 1. Bilateral lower extremity cellulitis. 2. Substance abuse. 3. Methamphetamine induced psychosis. 4. Acute kidney injury. 5. Homeless status. Patient Condition: Stable Procedures Bilateral Lower Extremity Venous Doppler Study IMPRESSION: 1. No evidence of deep vein thrombosis involving either lower extremity. Bilateral Ankle X-Ray IMPRESSION: No acute fracture or dislocation. Left medial malleolar soft tissue swelling. CXR IMPRESSION: Subsegmental atelectasis at the lung bases. Hx of Present Illness The patient is a 56-year-old gentleman with past medical history of methamphetamine abuse psychosis who presented to the emergency room with chief complaint of bilateral lower extremity erythema and swelling of bilateral ankles concerning for cellulitis. The patient was noticed to have leukocytosis. The patient is homeless. Provided the patient's history of present illness, a clinical decision was made to admit the patient inpatient setting to have him further evaluated Hospital Course The patient was admitted to inpatient setting. The patient was started on empiric antibiotics. Pancultures were ordered on this patient. The patient's bilateral lower extremity cellulitis improved with IV antibiotic therapy. The patient underwent a bilateral lower extremity venous Doppler study that was negative for any DVT. The patient also underwent a bilateral ankle x-ray that revealed left medial malleolus soft tissue swelling. The patient's leukocytosis resolved. The patient had no febrile episodes. The patient's erythema and edema of the bilateral lower extremities had improved. The patient is a current amphetamine abuser. The patient's urine drug screen was positive for amphetamines. Patient was advised on quitting the use of amphetamines. The patient was also evaluated by a foster care social worker. The patient is currently homeless. The patient was evaluated by foster care social worker. The patient's bilateral LE cellulitis had clinically improved and the patient was switched to oral medications. Patient is stable to be discharged on oral antibiotics. The patient had a stable hospital course. Discharge Instructions 1. Take medications as per prescription. 2. Avoid using recreational drugs. 3. Take a regular diet as tolerated. 4. Follow-up with your primary care physician 1 week. If you do not have a primary care physician, please call Dr. Dharmesh Grover's office. The patient verbalized understanding of his discharge instructions. Case discussed with Dr. Angel. Home Meds Active Scripts Sulfamethoxazole/Trimethoprim* (Bactrim Ds* Tablet) 1 Each Tablet, 1 TAB PO BID , #14 TAB Prov:PRINCESSSURYA C 05/07/17 Hydrocodone/Acetaminophen ([place] 10-325 Tablet) 1 Each Tablet, 1 EACH PO Q6H for PAIN, #10 TAB Prov:SHANELL HILL HIDE HOUSE SUPERVISOR 05/05/17 Cephalexin* (Cephalexin*) 500 Mg Capsule, 500 MG PO Q6 for 10 Days, CAP Prov:SHANELL HILL HIDE HOUSE SUPERVISOR 05/05/17 Reported Medications Omeprazole* (Omeprazole*) 40 Mg Capsule.dr, 40 MG PO DAILY, #30 CAP 04/20/17 Tamsulosin Hcl* (Flomax*) 0.4 Mg Cap.er.24h, 0.4 MG PO BID, CAP 05/29/16 Discontinued Scripts Nystatin* (Nystatin*) 15 Gm Cr, 1 APPLIC TOP BID for 7 Days, #1 TUB Prov:NAM MESSINA MD 04/27/17 Follow-up Plan Follow-up with Dr. Dharmesh Grover [discharge clinic] in 7 days. Primary Care Provider None. Time spent on discharge: > 30 minutes Pending Labs Laboratory Tests Test 05/04/17 15:10 05/05/17 04:20 Vitamin D 1,25-Dihydroxy 61.9ng/ml (30-100) White Blood Count 6.210^3/ul (4.8-10.8) Red Blood Count 4.7810^6/ul (4.70-6.10) Hemoglobin 15.4g/dl (14.0-18.0) Hematocrit 45.1% (42.0-52.0) Mean Corpuscular Volume 94.4fl (82.0-101.0) Mean Corpuscular Hemoglobin 32.2pg (29.0-33.0) Mean Corpuscular Hemoglobin Concent 34.1g/dl (32.0-37.0) Red Cell Distribution Width 13.5% (11.5-14.5) Platelet Count 93242^3/UL (140-415) Mean Platelet Volume 10.4fl (7.4-10.4) Neutrophils % 48.6% (39.0-77.0) Lymphocytes % 33.8% (15.0-51.0) Monocytes % 9.7% (0.0-11.0) Eosinophils % 6.8% (0.0-7.0) Basophils % 0.6% (0.0-2.0) Nucleated Red Blood Cells % 0.0/100WBC (0.0-0.0) Neutrophils # 3.010^3/ul (1.6-7.5) Lymphocytes # 2.110^3/ul (0.8-2.9) Monocytes # 0.610^3/ul (0.3-0.9) Eosinophils # 0.410^3/ul (0.0-0.5) Basophils # 0.010^3/ul (0.0-0.1) Nucleated Red Blood Cells # 0.010^3/ul (0.0-0.0) Sodium Level 142mmol/L (135-144) Potassium Level 4.1mmol/L (3.5-5.1) Chloride Level 99mmol/L (97-110) Carbon Dioxide Level 29mmol/L (21-31) Anion Gap 18 (8-16) Blood Urea Nitrogen 13mg/dl (7-20) Creatinine 0.82mg/dl (0.61-1.24) Glucose Level 98mg/dl (70-220) Calcium Level 9.2mg/dl (8.4-10.2) Phosphorus Level 3.6mg/dl (2.5-4.9) Magnesium Level 1.8mg/dl (1.7-2.5) SHANELL HILL NP May 05, 2017 12:49
== END 2017-05-05 13:20 | disposition home or self-care (01) | DRG 603 ==
LOC: E/R 12:27 → PP2 16:49
PROVIDERS: ADMIT Internal Medicine; ATTEND Internal Medicine
DX: L03.116 Cellulitis of left lower limb (principal); N17.9 Acute kidney failure, unspecified; F15.10 Other stimulant abuse, uncomplicated; F15.159 Other stimulant abuse with stimulant-induced psychotic disorder, unspecified; Z59.0 Homelessness
CPT/HCPCS: 71010; 80048; 80053; 80076; 80306; 80307; 81001; 82652; 83036; 83605; 83735; 84100; 84484; 85025; 85610; 85730; 87040; 87081; 87086; 93005; 93970; 97162; J0690; J0692; J1650; J2270; J2405; J3370; J7030

== ENCOUNTER 2017-05-07 17:04 | Emergency (ER) | payer MEDICAID ==
[~2017-05-07] VITALS: Ht 172.7 cm; Wt 85.5 kg
[~2017-05-07 17:04] MED LIST changes: +CEPH500C PO; +HYDR-902 PO; -NYST15CR28 TOP
[2017-05-07 17:11] VITALS: Ht 172.7 cm; Wt 85.5 kg
[2017-05-07] MEDS ORDERED: SULF1TAB31 PO (18:15)
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
== END 2017-05-07 18:43 | disposition home or self-care (01) ==
LOC: FTE 17:04
DX: M25.571 Pain in right ankle and joints of right foot (principal); M25.572 Pain in left ankle and joints of left foot; F17.210 Nicotine dependence, cigarettes, uncomplicated
CPT/HCPCS: 99283

== ENCOUNTER 2017-05-30 21:26 | Emergency (ER) | payer MEDICAID ==
[~2017-05-30] VITALS: Ht 172.7 cm; Wt 86.3 kg
[~2017-05-30 21:26] MED LIST changes: +SULF1TAB31 PO
[2017-05-30 21:34] VITALS: Ht 172.7 cm; Wt 86.3 kg
[2017-05-30] MEDS ORDERED: OLANZAPINE (ODT) 5 MG TAB PO STA (21:45)
[2017-05-30] MEDS ORDERED: ACETAMINOPHEN 325 MG TAB PO ONE (22:00)
[2017-05-30 22:43] LABS: BASOPHILS % 0.3 % (0.0-2.0); EOSINOPHILS # 0.5 10^3/ul (0.0-0.5); EOSINOPHILS % 7.4 % (0.0-7.0); HEMATOCRIT 40.8 % (42.0-52.0); HEMOGLOBIN 14.6 g/dl (14.0-18.0); LYMPHOCYTES % 42.5 % (15.0-51.0); MEAN CORPUSCULAR HEMOGLOBIN 33.3 pg (29.0-33.0); MEAN CORPUSCULAR HGB CONC 35.8 g/dl (32.0-37.0); MEAN CORPUSCULAR VOLUME 93.2 fl (82.0-101.0); MEAN PLATELET VOLUME 9.8 fl (7.4-10.4); MONOCYTE # 0.7 10^3/ul (0.3-0.9); NEUTROPHIL # 2.8 10^3/ul (1.6-7.5); NEUTROPHILS % 39.5 % (39.0-77.0); PLATELET COUNT 217 10^3/UL (140-415); RED BLOOD COUNT 4.38 10^6/ul (4.70-6.10)
[2017-05-30 22:49] LABS: ADD UMIC NO; UR ASCORBIC ACID NEGATIVE (NEGATIVE); UR BILIRUBIN (Dip) NEGATIVE (NEGATIVE); UR BLOOD (Dip) NEGATIVE (NEGATIVE); UR CLARITY CLEAR (CLEAR); UR COLOR YELLOW (YELLOW); UR GLUCOSE (Dip) NEGATIVE (NEGATIVE); UR KETONES (Dip) NEGATIVE (NEGATIVE); UR LEUKOCYTE ESTERASE (Dip) NEGATIVE Leu/ul (NEGATIVE); UR NITRITE (Dip) NEGATIVE (NEGATIVE); UR SPECIFIC GRAVITY (Dip) 1.011 (1.003-1.030); UR TOTAL PROTEIN (Dip) NEGATIVE (NEGATIVE); UR UROBILINOGEN (Dip) NEGATIVE (NEGATIVE)
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
[2017-05-30] MEDS ORDERED: LORAZEPAM 1 MG TAB PO ONE (23:00)
[2017-05-30 23:03] LABS: ALANINE AMINOTRANSFERASE 65 IU/L (13-69); ALBUMIN 3.6 g/dl (3.3-4.9); ALBUMIN/GLOBULIN RATIO 1.24; ALKALINE PHOSPHATASE 85 IU/L (42-121); ANION GAP 15 (8-16); ASPARTATE AMINO TRANSFERASE 48 IU/L (15-46); BILIRUBIN,INDIRECT 0.5 mg/dl (0-1.1); BILIRUBIN,TOTAL 0.5 mg/dl (0.2-1.3); BLOOD UREA NITROGEN 9 mg/dl (7-20); CALCIUM 8.6 mg/dl (8.4-10.2); CARBON DIOXIDE 29 mmol/L (21-31); CHLORIDE 104 mmol/L (97-110); CREATININE 0.87 mg/dl (0.61-1.24); GLUCOSE 89 mg/dl (70-220); POTASSIUM 3.8 mmol/L (3.5-5.1); SODIUM 144 mmol/L (135-144); TOTAL PROTEIN 6.5 g/dl (6.1-8.1)
[2017-05-30 23:07] LABS: ACETAMINOPHEN < 10.0 ug/ml (10.0-30.0); ETHANOL < 10.0 mg/dl; SALICYLATE < 1.0 mg/dl (5.0-30.0)
[2017-05-30 23:10] LABS: CANNABINOIDS Negative (NEGATIVE); COCAINE Positive (NEGATIVE)
[2017-05-30 23:13] LABS: BARBITURATES Negative (NEGATIVE); BENZODIAZEPINES Negative (NEGATIVE); OPIATES Negative (NEGATIVE)
--- NOTE | 2017-05-31 00:46 | ERA ---
ER Documentation Chief Complaint Date/Time DATE: 05/31/17 TIME: 00:45 Chief Complaint paranoid, states "they're torturing me, the sales operations consultant are out to get me" HPI Patient is a 56-year-old male who presents saying "people are after me and shooting power surge through my ankles". Please note the history and physical exam is limited secondary to the patient's mental status at this time. He has flight of ideas and it is difficult to obtain history otherwise. He appears to be having delusions and her nausea as well. Upon review of old medical records the patient has multiple visits to the ER. Review of the emergency department information exchange system shows visits to 4 separate emergency departments. He denies a primary doctor currently. ROS All systems reviewed and are negative except as per history of present illness. Medications Home Meds Active Scripts Sulfamethoxazole/Trimethoprim* (Bactrim Ds* Tablet) 1 Each Tablet, 1 TAB PO BID , #14 TAB Prov:PRINCESSSURYA C 05/07/17 Hydrocodone/Acetaminophen ([place] 10-325 Tablet) 1 Each Tablet, 1 EACH PO Q6H for PAIN, #10 TAB Prov:SHANELL HILL UNDERWRITING CLERK 05/05/17 Cephalexin* (Cephalexin*) 500 Mg Capsule, 500 MG PO Q6 for 10 Days, CAP Prov:SHANELL HILL UNDERWRITING CLERK 05/05/17 Reported Medications Omeprazole* (Omeprazole*) 40 Mg Capsule.dr, 40 MG PO DAILY, #30 CAP 04/20/17 Tamsulosin Hcl* (Flomax*) 0.4 Mg Cap.er.24h, 0.4 MG PO BID, CAP 05/29/16 Allergies Allergies: Coded Allergies: ibuprofen (Unverified Allergy, Unknown, 05/30/17) PMhx/Soc History of Surgery: Yes (inguinal hernia x 3) Anesthesia Reaction: No Hx Neurological Disorder: No Hx Respiratory Disorders: No Hx Cardiac Disorders: No Hx Psychiatric Problems: Yes (methampethamine induced psychosis) Hx Miscellaneous Medical Probl: Yes Hx Alcohol Use: Yes Hx Substance Use: Yes Hx Tobacco Use: Yes Smoking Status: Current every day smoker FmHx Family History: diabetes Physical Exam Vitals Vital Signs Date Time Temp Pulse Resp B/P Pulse Ox O2 Delivery O2 Flow Rate FiO2 05/30/17 21:34 97.0 80 18 126/81 97 Physical Exam Const: Psychosis Head: Atraumatic Eyes: Normal Conjunctiva ENT: Normal External Ears, Nose and Mouth. Neck: Full range of motion..~ No meningismus. Resp: Clear to auscultation bilaterally Cardio: Regular rate and rhythm, no murmurs Abd: Soft, non tender, non distended. Normal bowel sounds Skin: No petechiae or rashes Back: No midline or flank tenderness Ext: No cyanosis, or edema Neur: Awake with flight of ideas and paranoia Psych: Paranoia, flight of ideas, and delusions, no suicidal or homicidal ideation Result Diagram: 05/30/17 2215 05/30/17 2215 Results 24 hrs Laboratory Tests Test 05/30/17 22:09 05/30/17 22:15 Urine Color YELLOW Urine Clarity CLEAR Urine pH 6.0 Urine Specific [place] 1.011 Urine Ketones NEGATIVEmg/dL Urine Nitrite NEGATIVEmg/dL Urine Bilirubin NEGATIVEmg/dL Urine Urobilinogen NEGATIVEmg/dL Urine Leukocyte Esterase NEGATIVELeu/ul Urine Hemoglobin NEGATIVEmg/dL Urine Glucose NEGATIVEmg/dL Urine Total Protein NEGATIVEmg/dl Urine Opiates Screen Negative Urine Barbiturates Negative Urine Amphetamines Screen Positive Urine Benzodiazepines Screen Negative Urine Cocaine Screen Positive Urine Cannabinoids Negative White Blood Count 7.010^3/ul Red Blood Count 4.3810^6/ul Hemoglobin 14.6g/dl Hematocrit 40.8% Mean Corpuscular Volume 93.2fl Mean Corpuscular Hemoglobin 33.3pg Mean Corpuscular Hemoglobin Concent 35.8g/dl Red Cell Distribution Width 13.0% Platelet Count 31386^3/UL Mean Platelet Volume 9.8fl Neutrophils % 39.5% Lymphocytes % 42.5% Monocytes % 10.0% Eosinophils % 7.4% Basophils % 0.3% Nucleated Red Blood Cells % 0.0/100WBC Neutrophils # 2.810^3/ul Lymphocytes # 3.010^3/ul Monocytes # 0.710^3/ul Eosinophils # 0.510^3/ul Basophils # 0.010^3/ul Nucleated Red Blood Cells # 0.010^3/ul Sodium Level 144mmol/L Potassium Level 3.8mmol/L Chloride Level 104mmol/L Carbon Dioxide Level 29mmol/L Anion Gap 15 Blood Urea Nitrogen 9mg/dl Creatinine 0.87mg/dl Glucose Level 89mg/dl Calcium Level 8.6mg/dl Total Bilirubin 0.5mg/dl Direct Bilirubin 0.00mg/dl Indirect Bilirubin 0.5mg/dl Aspartate Amino Transf (AST/SGOT) 48IU/L Alanine Aminotransferase (ALT/SGPT) 65IU/L Alkaline Phosphatase 85IU/L Total Protein 6.5g/dl Albumin 3.6g/dl Globulin 2.90g/dl Albumin/Globulin Ratio 1.24 Salicylates Level < 1.0mg/dl Acetaminophen Level < 10.0ug/ml Ethyl Alcohol Level < 10.0mg/dl Current Medications Medications (Trade) Dose Ordered Sig/Jhonathan Route PRN Reason Start Time Stop Time Status Last Admin Dose Admin Olanzapine (Zyprexa Zydis) 5 mg ONCE STAT PO 05/30/17 21:45 05/30/17 21:47 DC Acetaminophen (Tylenol Tab) 650 mg ONCE ONCE PO 05/30/17 22:00 05/30/17 22:01 DC Lorazepam (Ativan) 2 mg ONCE ONCE PO 05/30/17 23:00 05/30/17 23:01 DC Procedures/MDM Smoking Cessation Therapy: Pt. was lectured for greater than 3 minutes on the health risks of continued smoking and the benefits of cessation. Patient is a 56-year-old male who presents with acute psychosis. The patient required medicine for flight of ideas and sedation. The patient was recommended a 5150 hold by psychosis. The patient will need transfer to a 5150 facility for inpatient psychiatric care. The patient is medically clear at this time. Departure Diagnosis: Primary Impression: Psychosis Qualified Code: F29 - Psychosis, unspecified psychosis type Condition: LIAM Alexander MD May 31, 2017 00:46
--- NOTE | 2017-05-31 08:07 | EN ---
Date/Time of Note Date/Time of Note DATE: 05/31/17 TIME: 08:06 ER Progress Note The patient was evaluated by psychiatry. The patient has been cleared for discharge. The patient is not a threat to himself or others. Clinical impression psychosis Condition: Stable Disposition discharged home KARON CONNER DO May 31, 2017 08:07
[2017-05-31] MEDS ORDERED: OLAN5TAB5 PO (08:12)
[2017-05-31 08:20] VITALS: BP 119/67; PULSE 86; RESP 16; TEMP 98.3
== END 2017-05-31 08:35 | disposition home or self-care (01) ==
LOC: E/R 21:26
DX: F29 Unspecified psychosis not due to a substance or known physiological condition (principal); F17.210 Nicotine dependence, cigarettes, uncomplicated
CPT/HCPCS: 80053; 80306; 80307; 81003; 85025; Z7610; 36415; 99283

== ENCOUNTER 2017-06-13 08:15 | Emergency (ER) | END 2017-06-13 09:48 | disposition home or self-care (01) | DX: M25.571 Pain in right ankle and joints of right foot (principal); F17.210 Nicotine dependence, cigarettes, uncomplicated ==

== ENCOUNTER 2018-03-30 11:24 | Emergency (ER) | END 2018-03-30 12:06 | disposition left against medical advice (07) ==

== ENCOUNTER 2018-03-30 12:50 | Emergency (ER) | END 2018-03-31 01:50 ==

== ENCOUNTER 2018-04-13 22:57 | Emergency (ER) | END 2018-04-14 00:51 | disposition left against medical advice (07) ==

== ENCOUNTER 2018-04-29 23:19 | Emergency (ER) | END 2018-04-29 23:53 | disposition left against medical advice (07) ==

== ENCOUNTER 2018-05-08 22:51 | Emergency (ER) | END 2018-05-09 08:24 | disposition left against medical advice (07) ==

== ENCOUNTER 2018-05-17 20:45 | Emergency (ER) | END 2018-05-17 22:15 | disposition left against medical advice (07) ==

== ENCOUNTER 2018-09-04 16:34 | Emergency (ER) | END 2018-09-04 17:11 | disposition left against medical advice (07) ==

== ENCOUNTER 2018-09-04 18:57 | Emergency (ER) | END 2018-09-04 19:05 | disposition left against medical advice (07) ==

== ENCOUNTER 2018-10-23 16:45 | Emergency (ER) | END 2018-10-23 17:49 | disposition left against medical advice (07) ==

== ENCOUNTER 2018-10-29 12:55 | Emergency (ER) | payer OTHER ==
[~2018-10-29] VITALS: Wt 85.5 kg
[~2018-10-29 12:55] MED LIST changes: -CEPH500C PO; -HYDR-902 PO; -SULF1TAB31 PO
[2018-10-29 13:04] VITALS: BP 138/89; PULSE 78; RESP 18
[2018-10-29] MEDS ORDERED: OLANZAPINE 5 MG TAB PO ONE (14:00)
--- NOTE | 2018-10-29 14:06 | ERD ---
ER Documentation Chief Complaint Chief Complaint "THE POLICE ARE PUTTING MONITORS IN ME AND ITS LEAKING INTO MY BODY" HPI This is a 57-year-old homeless man who states he is here because he has a hiatal hernia that has some monitors placed in it. He says he has no psych history he is obviously paranoid and delusional.. Denies any suicidal or homicidal thoughts. The patient has frequently been here and leaves AMA or leaves after being triaged ROS All systems reviewed and are negative except as per history of present illness. Medications Home Meds Reported Medications Omeprazole* (Omeprazole*) 40 Mg Capsule.dr, 40 MG PO DAILY, #30 CAP 04/20/17 Tamsulosin Hcl* (Flomax*) 0.4 Mg Cap.er.24h, 0.4 MG PO BID, CAP 05/29/16 Allergies Allergies: Coded Allergies: ibuprofen (Unverified Allergy, Unknown, 03/30/18) PMhx/Soc History of Surgery: Yes (inguinal hernia x 3) Anesthesia Reaction: No Hx Neurological Disorder: No Hx Respiratory Disorders: No Hx Cardiac Disorders: No Hx Psychiatric Problems: Yes (methampethamine induced psychosis) Hx Miscellaneous Medical Probl: Yes (see PT note) Hx Alcohol Use: Yes Hx Substance Use: Yes (last night meth) Hx Tobacco Use: Yes FmHx Family History: No coronary disease Physical Exam Vitals Vital Signs Date Temp Pulse Resp B/P (MAP) Pulse Ox O2 O2 Flow FiO2 Time Delivery Rate 10/29/18 98.1 78 18 138/89 99 13:04 (105) Physical Exam Const: [Well-developed, well-nourished] Head: [Atraumatic, normocephalic] Eyes: [Normal Conjunctiva, PERRLA, EOMI, normal sclera, no nystagmus] ENT: [Normal External Ears, Nose and Mouth, moist mucus membranes.] Neck: [Full range of motion. No meningismus, no lymphadenopathy.] Resp: [Clear to auscultation bilaterally, no wheezing, rhonchi, rales] Cardio: [Regular rate and rhythm, no murmurs, S1 S2 present] Abd: [Soft, non tender x 4, non distended. Normal bowel sounds, no guarding or rebound, no pulsitile abdominal masses or bruits] Skin: [No petechiae or rashes, no ecchymosis , no maculopapular rash] Back: [No midline or flank tenderness] Ext: [No cyanosis, or edema, FROM x 4, normal inspection, neurovascularly intact x 4] Neur: [Awake and alert, STR 5/5 x 4, sensation intact x 4, no focal findings, cerebellum intact] Psych: Paranoid and delusional calm denies SI or HI Results 24 hrs Current Medications Medications Dose Sig/Jhonathan Start Time Status Last (Trade) Ordered Route PRN Stop Time Admin Dose Reason Admin Olanzapine 10 mg ONCE ONCE 10/29/18 DC (Zyprexa) PO 14:00 10/29/18 14:01 Procedures/MDM Patient left the ER before any workup or follow-up could be done. He eloped Departure Diagnosis: Primary Impression: Psychological disorder Condition: Stable KARON CONNER DO Oct 29, 2018 14:06
== END 2018-10-29 14:17 | disposition left against medical advice (07) ==
LOC: E/R 12:55
DX: F99 Mental disorder, not otherwise specified (principal); R40.2252 Coma scale, best verbal response, oriented, at arrival to emergency department; R40.2362 Coma scale, best motor response, obeys commands, at arrival to emergency department; R40.2142 Coma scale, eyes open, spontaneous, at arrival to emergency department; Z87.891 Personal history of nicotine dependence
CPT/HCPCS: 99283

== ENCOUNTER 2018-11-03 15:16 | Emergency (ER) | payer SELFPAY | END 2018-11-03 15:30 | disposition left against medical advice (07) | LOC: E/R 15:16 | DX: Z53.21 Procedure and treatment not carried out due to patient leaving prior to being seen by health care provider (principal) ==

== ENCOUNTER 2018-11-06 14:03 | Emergency (ER) | payer OTHER ==
[~2018-11-06] VITALS: Ht 167.6 cm; Wt 84.6 kg
[2018-11-06 14:18] VITALS: Ht 167.6 cm; Wt 84.6 kg
[2018-11-06] MEDS ORDERED: SOD CHLORIDE 0.9% 1,000 ML IV STA ×2 (15:31→17:25)
[2018-11-06] MEDS ORDERED: LORAZEPAM 2 MG INJ IV ONE (17:30)
[2018-11-06 18:53] VITALS: BP 120/87; PULSE 72; RESP 16
--- NOTE | 2018-11-06 18:58 | ERD ---
ER Documentation Chief Complaint Chief Complaint Complains of an abscess and bleeding from thee buttock area HPI This is a 57-year-old male that presents to the emergency department with multiple complaints. The patient initially stated that he was experiencing an abscess with bleeding in the buttocks area to the triage nurse. However when I approached the patient he stated that his main reason for coming to the emergency department as he was concerned that a foreign object had been inserted into his body roughly 3 years ago. He stated he underwent an upper endoscopy and a colonoscopy 3 years ago when he developed "internal rectal pain" after a device called "medic intact" had been placed into his body during the colonos copy. He states that this is what is causing his pain. He denies any hemoptysis hematemesis and also denies any rectal bleeding or melanotic stools. He had no fevers or shaking or chills. The patient did admit to crystal meth use just prior to arrival. He has no chest pain. He has no shortness of breath. He denies any suicidal homicidal thoughts or ideations ROS All systems reviewed and are negative except as per history of present illness. Medications Home Meds Reported Medications Omeprazole* (Omeprazole*) 40 Mg Capsule.dr, 40 MG PO DAILY, #30 CAP 04/20/17 Tamsulosin Hcl* (Flomax*) 0.4 Mg Cap.er.24h, 0.4 MG PO BID, CAP 05/29/16 Allergies Allergies: Coded Allergies: ibuprofen (Unverified Allergy, Unknown, 11/06/18) PMhx/Soc History of Surgery: Yes (inguinal hernia x 3) Anesthesia Reaction: No Hx Neurological Disorder: No Hx Respiratory Disorders: No Hx Cardiac Disorders: No Hx Psychiatric Problems: Yes (methampethamine induced psychosis) Hx Miscellaneous Medical Probl: No Hx Alcohol Use: Yes Hx Substance Use: Yes (last night meth) Hx Tobacco Use: Yes Smoking Status: Current every day smoker Physical Exam Vitals Vital Signs Date Temp Pulse Resp B/P (MAP) Pulse Ox O2 O2 Flow FiO2 Time Delivery Rate 11/06/18 97.6 78 14 124/92 100 17:31 (103) 11/06/18 98.0 91 20 119/85 96 14:18 (96) Physical Exam Constitutional:Well-developed. Well-nourished. HEENT:Normocephalic. Atraumatic.Pupils were equal round reactive to light. Moist mucous membranes.No tonsillar exudates. Neck: No nuchal rigidity. No lymphadenopathy. No posterior cervical spine tenderness or step-offs. Respiratory: Not using accessory muscles of respiration.Lungs were clear to auscultation bilaterally. No rhonchi. No rales. No wheezing. Cardiovascular: Regular rate regular rhythm.No murmurs. No rubs were appreciated.S1, S2 normal. Distal pulses are palpable 2+ bilaterally. GI: Abdomen was soft. Nontender. Non Distended. No pulsatile abdominal masses or bruits. No rebound. No guarding. Bowel sounds were present and normal. Muscle skeletal: Full range of motion of both the upper and lower extremities bilaterally.Normal muscle tone.No assymetrical calf tenderness or swelling. Skin: No petechia, no purpura. No lesions on the palms or the soles of the feet. No maculopapular rash. RECTAL: Fecal occult blood test was negative. No hemorrhoids. No palpable masses. No fluctuance no induration no erythema surrounding the perirectal region NEURO: Patient was alert, awake, orientated x3.No facial droop. Gait observed and normal with no ataxia.Speech had regular rate and rhythm. No focal neurological deficits. Result Diagram: 11/06/18 1653 11/06/18 1653 Results 24 hrs Laboratory Tests Test 11/06/18 16:52 11/06/18 16:53 Urine Opiates Screen Negative Urine Barbiturates Negative Urine Amphetamines Screen Positive Urine Benzodiazepines Screen Negative Urine Cocaine Screen Negative Urine Cannabinoids Negative White Blood Count 9.3 10^3/ul Red Blood Count 5.07 10^6/ul Hemoglobin 16.3 g/dl Hematocrit 46.1 % Mean Corpuscular Volume 90.9 fl Mean Corpuscular Hemoglobin 32.1 pg Mean Corpuscular Hemoglobin Concent 35.4 g/dl Red Cell Distribution Width 13.3 % Platelet Count 217 10^3/UL Mean Platelet Volume 9.9 fl Immature Granulocytes % 0.500 % Neutrophils % 52.9 % Lymphocytes % 32.2 % Monocytes % 8.0 % Eosinophils % 5.9 % Basophils % 0.5 % Nucleated Red Blood Cells % 0.0 /100WBC Immature Granulocytes # 0.050 10^3/ul Neutrophils # 4.9 10^3/ul Lymphocytes # 3.0 10^3/ul Monocytes # 0.7 10^3/ul Eosinophils # 0.6 10^3/ul Basophils # 0.1 10^3/ul Nucleated Red Blood Cells # 0.0 10^3/ul Urine Color YELLOW Urine Clarity CLEAR Urine pH 6.0 Urine Specific [place] 1.010 Urine Ketones NEGATIVE mg/dL Urine Nitrite NEGATIVE mg/dL Urine Bilirubin NEGATIVE mg/dL Urine Urobilinogen 1+ mg/dL Urine Leukocyte Esterase NEGATIVE Marlen/ul Urine Hemoglobin NEGATIVE mg/dL Urine Glucose NEGATIVE mg/dL Urine Total Protein NEGATIVE mg/dl Sodium Level 139 mmol/L Potassium Level 3.7 mmol/L Chloride Level 104 mmol/L Carbon Dioxide Level 28 mmol/L Anion Gap 7 Blood Urea Nitrogen 13 mg/dl Creatinine 0.76 mg/dl Est Glomerular Filtrat Rate mL/min > 60 mL/min Glucose Level 121 mg/dl Calcium Level 9.1 mg/dl Total Bilirubin 0.7 mg/dl Direct Bilirubin 0.00 mg/dl Indirect Bilirubin 0.7 mg/dl Aspartate Amino Transf (AST/SGOT) 56 IU/L Alanine Aminotransferase (ALT/SGPT) 39 IU/L Alkaline Phosphatase 99 IU/L Total Protein 7.4 g/dl Albumin 3.9 g/dl Globulin 3.50 g/dl Albumin/Globulin Ratio 1.11 Salicylates Level < 1.0 mg/dl Acetaminophen Level < 10.0 ug/ml Ethyl Alcohol Level < 10.0 mg/dl Current Medications Medications Dose Sig/Jhonathan Start Time Status Last (Trade) Ordered Route PRN Stop Time Admin Dose Reason Admin Sodium 1,000 ml @ Q1H STAT 11/06/18 DC 11/06/18 Chloride 1,000 mls/hr IV 15:31 11/06/18 15:42 16:30 Lorazepam 1 mg ONCE ONCE 11/06/18 DC (Ativan) IV 17:30 11/06/18 17:42 Sodium 1,000 ml @ Q1H STAT 11/06/18 DC 11/06/18 Chloride 1,000 mls/hr IV 17:25 11/06/18 18:13 18:24 Procedures/MDM This patient presented to the emergency department with acute psychosis and my differential diagnosis included but was not limited to ruling out life threatening causes of acute psychosis such as Wernickes encephalopathy, hypoxia, hypoglycemia, hypertensive encephalopathy, intracerebral hemorrhage, meningitis, poisoning. After my evaluation and workup on the patient I was able to exclude medical and reversible causes of the patients psychosis. It was my clinical impression the patients symptoms were an exacerbation of illicit drug use as his urine drug screen was positive for amphetamines. The patient did not appear to be a threat to himself or others. He did not have any physical exam findings to suggest a rectal abscess or rectal foreign body. I did feel that he can be safely discharged home after he was observed in the emergency department refused benzodiazepines. I obtained ancillary laboratory work which showed no severe electrolyte abnormalities no evidence of an infectious process. The patient was discharged home in fair condition. They were instructed to return to the emergency department at any time if there was any worsening of their condition. The patient stated they would follow up with their PCP in the next 24-48 hours to initiate a suitable medication regimen under the care of their PCP as well as to allow their PCP to monitor any drug reactions. The patient was discharged home with prescriptions after they gave informed consent to the new medication. They were also fully informed by myself on the adverse effects and adverse drug interactions in order to provide adequate safeguards to prevent possible adverse reactions to medications. Departure Diagnosis: Primary Impression: Amphetamine abuse Condition: Fair Patient Instructions: Pain, Uncertain Cause (Acute), Amphetamine Screen (Blood) LINDSAY MURILLO MD Nov 06, 2018 18:58
== END 2018-11-06 19:00 | disposition home or self-care (01) ==
LOC: E/R 14:03
DX: F15.10 Other stimulant abuse, uncomplicated (principal); F17.210 Nicotine dependence, cigarettes, uncomplicated
CPT/HCPCS: 80053; 80306; 80307; 81003; 85025; J7030; Z7502

== ENCOUNTER 2019-01-03 14:01 | Emergency (ER) | payer OTHER ==
[~2019-01-03] VITALS: Ht 172.7 cm; Wt 90.9 kg
[2019-01-03 14:15] VITALS: BP 187/118; PULSE 102; RESP 20; Ht 172.7 cm; Wt 90.9 kg
[2019-01-03] MEDS ORDERED: OLANZAPINE 5 MG TAB PO ONE (16:00)
[2019-01-03] MEDS ORDERED: OMEP40CA6 PO (16:47)
[2019-01-03] MEDS ORDERED: OLAN10TA7 PO (17:37)
--- NOTE | 2019-01-03 17:55 | ERD ---
ER Documentation Chief Complaint Chief Complaint "FEELING SHOCKING THROUGH FEET" "VOICE RECORDERS IN THROAT" HPI This is a 58-year-old male who has been seen by me in the past. The patient is here because he thinks there are recorders in his throat and he had a Jacobson catheter placed in the hospital here years ago and that the Jacobson catheter had cameras that are recording when he does. Patient denies a history of psychosis. He says that he wants us to check these things out. Denies any physical complaints ROS All systems reviewed and are negative except as per history of present illness. Medications Home Meds Active Scripts Olanzapine* (Zyprexa*) 10 Mg Tablet, 10 MG PO DAILY, #10 TAB Prov:KARON CONNER DO 01/03/19 Reported Medications Omeprazole* (Omeprazole*) 40 Mg Capsule.dr, 40 MG PO DAILY, #30 CAP 01/03/19 Discontinued Reported Medications Omeprazole* (Omeprazole*) 40 Mg Capsule.dr, 40 MG PO DAILY, #30 CAP 04/20/17 Tamsulosin Hcl* (Flomax*) 0.4 Mg Cap.er.24h, 0.4 MG PO BID, CAP 05/29/16 Allergies Allergies: Coded Allergies: ibuprofen (Unverified Allergy, Unknown, 01/03/19) PMhx/Soc History of Surgery: Yes (inguinal hernia x 3) Anesthesia Reaction: No Hx Neurological Disorder: No Hx Respiratory Disorders: No Hx Cardiac Disorders: No Hx Psychiatric Problems: Yes (methampethamine induced psychosis) Hx Miscellaneous Medical Probl: No Hx Alcohol Use: Yes Hx Substance Use: Yes Hx Tobacco Use: Yes Smoking Status: Never smoker FmHx Family History: No coronary disease Physical Exam Vitals Vital Signs Date Temp Pulse Resp B/P (MAP) Pulse Ox O2 O2 Flow FiO2 Time Delivery Rate 01/03/19 97.9 102 20 187/118 96 14:15 (141) Physical Exam Const: No acute distress Head: Atraumatic Eyes: Normal Conjunctiva ENT: Normal External Ears, Nose and Mouth. Neck: Full range of motion. No meningismus. Resp: Clear to auscultation bilaterally Cardio: Regular rate and rhythm, no murmurs Abd: Soft, non tender, non distended. Normal bowel sounds Skin: No petechiae or rashes Back: No midline or flank tenderness Ext: No cyanosis, or edema Neur: Awake and alert Psych: Psychotic thoughtsparanoia, not suicidal or homicidal Results 24 hrs Current Medications Medications Dose Sig/Jhonathan Start Time Status Last (Trade) Ordered Route PRN Stop Time Admin Dose Reason Admin Olanzapine 10 mg ONCE ONCE 01/03/19 DC (Zyprexa) PO 16:00 01/03/19 16:01 Procedures/MDM The patient was offered Zyprexa which he declined. He wanted to have a snack and go to sleep. Patient is not cooperating with medical care. The patient is psychotic but has episodes of lucidity and orientation that is appropriate. This is a chronic issue I will discharge him with a prescription for Zyprexa Departure Diagnosis: Primary Impression: Psychosis Psychosis type: unspecified psychosis type Qualified Codes: F29 - Unspecified psychosis not due to a substance or known physiological condition Condition: Stable Patient Instructions: Psychosis KARON CONNER DO Jan 03, 2019 17:55
== END 2019-01-03 18:06 | disposition home or self-care (01) ==
LOC: E/R 14:01
DX: F29 Unspecified psychosis not due to a substance or known physiological condition (principal); Z87.891 Personal history of nicotine dependence
CPT/HCPCS: Z7502; Z7610; 99283

== ENCOUNTER 2019-01-03 18:40 | Emergency (ER) | payer SELFPAY ==
[~2019-01-03] VITALS: Ht 172.7 cm; Wt 85.0 kg
[~2019-01-03 18:40] MED LIST changes: +OLAN10TA7 PO
[2019-01-03 18:57] VITALS: BP 141/82; PULSE 94; RESP 18; Ht 172.7 cm; Wt 85.0 kg
== END 2019-01-03 21:00 | disposition left against medical advice (07) ==
LOC: E/R 18:40
DX: Z53.21 Procedure and treatment not carried out due to patient leaving prior to being seen by health care provider (principal)

== ENCOUNTER 2019-02-03 13:08 | Emergency (ER) | payer OTHER ==
[~2019-02-03] VITALS: Ht 172.7 cm; Wt 83.3 kg
[~2019-02-03 13:08] MED LIST changes: -TAMS-14 PO
[2019-02-03 13:11] VITALS: BP 111/76; PULSE 86; RESP 18; Ht 172.7 cm; Wt 83.3 kg
[2019-02-03] MEDS ORDERED: OLANZAPINE (ODT) 5 MG TAB PO STA (13:15)
--- NOTE | 2019-02-03 15:39 | ERD ---
ER Documentation Chief Complaint Chief Complaint they are shocking my heart with the wire attached when i smoke & inhale HPI Patient is a 58-year-old male who presents saying that he feels "electric shocks the people are putting inside him". The patient said that it started couple days ago. He says that he is not using drugs at this time. He says "on [place] also put a monitor in my heart". He has multiple visits to the [facility] department upon review of old medical records. Review of the emergency department information exchange system shows visits to 6 separate emergency departments for a total of 27 visits over the past 12 months. He said that his primary doctor is Dr. Tan and that he does not have a psychiatric doctor because he does not have any psychiatric problems. ROS All systems reviewed and are negative except as per history of present illness. Medications Home Meds Active Scripts Olanzapine* (Zyprexa*) 10 Mg Tablet, 10 MG PO DAILY, #10 TAB Prov:KARON CONNER DO 01/03/19 Reported Medications Omeprazole* (Omeprazole*) 40 Mg Capsule., 40 MG PO DAILY, #30 CAP 01/03/19 Allergies Allergies: Coded Allergies: ibuprofen (Unverified Allergy, Unknown, 01/03/19) PMhx/Soc History of Surgery: Yes (inguinal hernia x 3) Anesthesia Reaction: No Hx Neurological Disorder: No Hx Respiratory Disorders: No Hx Cardiac Disorders: No Hx Psychiatric Problems: Yes (methampethamine induced psychosis) Hx Miscellaneous Medical Probl: No Hx Alcohol Use: Yes Hx Substance Use: Yes Hx Tobacco Use: Yes FmHx Family History: diabetes Physical Exam Vitals Vital Signs Date Temp Pulse Resp B/P (MAP) Pulse Ox O2 O2 Flow FiO2 Time Delivery Rate 02/03/19 97.9 86 18 111/76 97 13:11 (88) Physical Exam Const: No acute distress Head: Atraumatic Eyes: Normal Conjunctiva ENT: Normal External Ears, Nose and Mouth. Neck: Full range of motion. No meningismus. Resp: Clear to auscultation bilaterally Cardio: Regular rate and rhythm, no murmurs Abd: Soft, non tender, non distended. Normal bowel sounds Skin: No petechiae or rashes Back: No midline or flank tenderness Ext: No cyanosis, or edema Neur: Awake and alert Psych: Hallucinations and flight of ideas but no homicidal or suicidal ideation Result Diagram: 02/03/19 1345 02/03/19 1345 Results 24 hrs Laboratory Tests Test 02/03/19 13:45 White Blood Count 8.1 10^3/ul Red Blood Count 4.58 10^6/ul Hemoglobin 15.0 g/dl Hematocrit 42.3 % Mean Corpuscular Volume 92.4 fl Mean Corpuscular Hemoglobin 32.8 pg Mean Corpuscular Hemoglobin Concent 35.5 g/dl Red Cell Distribution Width 13.5 % Platelet Count 205 10^3/UL Mean Platelet Volume 9.9 fl Immature Granulocytes % 0.200 % Neutrophils % 57.1 % Lymphocytes % 27.6 % Monocytes % 10.8 % Eosinophils % 3.8 % Basophils % 0.5 % Nucleated Red Blood Cells % 0.0 /100WBC Immature Granulocytes # 0.020 10^3/ul Neutrophils # 4.6 10^3/ul Lymphocytes # 2.2 10^3/ul Monocytes # 0.9 10^3/ul Eosinophils # 0.3 10^3/ul Basophils # 0.0 10^3/ul Nucleated Red Blood Cells # 0.0 10^3/ul Urine Color YELLOW Urine Clarity SLIGHTLY CLOUDY Urine pH 7.0 Urine Specific [place] 1.012 Urine Ketones NEGATIVE mg/dL Urine Nitrite NEGATIVE mg/dL Urine Bilirubin NEGATIVE mg/dL Urine Urobilinogen 2+ mg/dL Urine Leukocyte Esterase NEGATIVE Marlen/ul Urine Microscopic RBC 0 /HPF Urine Microscopic WBC 1 /HPF Urine Hemoglobin NEGATIVE mg/dL Urine Glucose NEGATIVE mg/dL Urine Total Protein NEGATIVE mg/dl Sodium Level 143 mmol/L Potassium Level 4.0 mmol/L Chloride Level 106 mmol/L Carbon Dioxide Level 31 mmol/L Anion Gap 6 Blood Urea Nitrogen 10 mg/dl Creatinine 0.78 mg/dl Est Glomerular Filtrat Rate mL/min > 60 mL/min Glucose Level 111 mg/dl Calcium Level 8.9 mg/dl Total Bilirubin 1.1 mg/dl Direct Bilirubin 0.00 mg/dl Indirect Bilirubin 1.1 mg/dl Aspartate Amino Transf (AST/SGOT) 26 IU/L Alanine Aminotransferase (ALT/SGPT) 35 IU/L Alkaline Phosphatase 96 IU/L Total Protein 6.6 g/dl Albumin 3.6 g/dl Globulin 3.00 g/dl Albumin/Globulin Ratio 1.20 Salicylates Level < 1.0 mg/dl Urine Opiates Screen Negative Acetaminophen Level < 10.0 ug/ml Urine Barbiturates Negative Urine Amphetamines Screen Negative Urine Benzodiazepines Screen Negative Urine Cocaine Screen Negative Urine Cannabinoids Negative Ethyl Alcohol Level < 10.0 mg/dl Current Medications Medications Dose Sig/Jhonathan Start Time Status Last (Trade) Ordered Route PRN Stop Time Admin Dose Reason Admin Olanzapine 5 mg ONCE STAT 02/03/19 DC (Zyprexa PO 13:15 02/03/19 Zydis) 13:16 Procedures/MDM Patient is a 58-year-old male who presents with hallucinations and psychosis. He was offered Zyprexa but became angry because he says "I do not have any psychiatric disease". However his exam would speak otherwise as he is having hallucinations and feeling like people are putting things inside him. He has no evidence of this physically however. He has normal laboratory studies and a negative urine drug screen. I offered him psychiatric consultation and Zyprexa but he refused and wants to leave. He did not appear to be a danger to himself or to others at this time and he can be discharged. He should follow-up with his primary doctor. He can return for any worsening symptoms. Departure Diagnosis: Primary Impression: Hallucinations Condition: Fair Patient Instructions: Psychosis Referrals: COMM[facility]ITY CLIN[facility] YOU HAVE RECEIVED A MEDICAL SCREENING EXAM AND THE RESULTS INDICATE THAT YOU DO NOT HAVE A CONDITION THAT REQUIRES URGENT TREATMENT IN THE EMERGENCY DEPARTMENT. FURTHER EVALUATION AND TREATMENT OF YOUR CONDITION CAN WAIT UNTIL YOU ARE SEEN IN YOUR DOCTORS OFFICE WITHIN THE NEXT 1-2 DAYS. IT IS YOUR RESPONSIBILITY TO MAKE AN APPOINTMENT FOR FOLOW-UP CARE. IF YOU HAVE A PRIMARY DOCTOR --you should call your primary doctor and schedule an appointment IF YOU DO NOT HAVE A PRIMARY DOCTOR YOU CAN CALL OUR PHYSICIAN REFERRAL HOTLINE AT IF YOU CAN NOT AFFORD TO SEE A PHYSICIAN YOU CAN CHOSE FROM THE FOLLOWING [facility] [id number] [place] [address] [facility] [facility] [address] [facility] [id number] [facility] [address] [facility]. [facility] [address] Additional Instructions: Call your primary care doctor TOMORROW for an appointment during the next 1-2 days.See the doctor sooner or return here if your condition worsens before your appointment time. LIAM GEE MD Feb 03, 2019 15:39
== END 2019-02-03 18:03 | disposition home or self-care (01) ==
LOC: E/R 13:08
DX: R44.3 Hallucinations, unspecified (principal); Z87.891 Personal history of nicotine dependence
CPT/HCPCS: 80053; 80307; 81001; 81003; 85025; Z7610; 99283

== ENCOUNTER 2019-02-04 11:45 | Emergency (ER) | payer SELFPAY ==
[~2019-02-04] VITALS: Ht 175.3 cm; Wt 96.0 kg
[2019-02-04 11:48] VITALS: BP 152/89; PULSE 99; RESP 18; Ht 175.3 cm; Wt 96.0 kg
== END 2019-02-04 14:56 | disposition left against medical advice (07) ==
LOC: E/R 11:45
DX: Z53.21 Procedure and treatment not carried out due to patient leaving prior to being seen by health care provider (principal)

== ENCOUNTER 2019-03-02 13:37 | Emergency (ER) | payer OTHER ==
[~2019-03-02] VITALS: Ht 167.6 cm; Wt 79.7 kg
[2019-03-02 13:42] VITALS: Ht 167.6 cm; Wt 79.7 kg
[2019-03-02] MEDS ORDERED: LORAZEPAM 1 MG TAB PO ONE (18:00)
--- NOTE | 2019-03-02 19:53 | ERD ---
ER Documentation Chief Complaint Chief Complaint Patient states sitting on grass felt something shocked him HPI This is a 58-year-old male who states he has no past medical history. The patient resented to the emergency department stating he had sat on grass just prior to arrival and he felt a shock. He stated that he had severe lower back pain. He also stated that aliens had stuck something into his lumbar spine. He denies illicit drug use. He was very guarded and limited in his history. He denied any headache. He had no suicidal homicidal thoughts or ideations. He did state people were out to get him. ROS All systems reviewed and are negative except as per history of present illness. Medications Home Meds Active Scripts Olanzapine* (Zyprexa*) 10 Mg Tablet, 10 MG PO DAILY, #10 TAB Prov:KARON CONNER DO 01/03/19 Reported Medications Omeprazole* (Omeprazole*) 40 Mg Capsule.dr, 40 MG PO DAILY, #30 CAP 01/03/19 Allergies Allergies: Coded Allergies: ibuprofen (Unverified Allergy, Unknown, 03/02/19) PMhx/Soc History of Surgery: Yes (inguinal hernia x 3) Anesthesia Reaction: No Hx Neurological Disorder: No Hx Respiratory Disorders: No Hx Cardiac Disorders: No Hx Psychiatric Problems: Yes (methampethamine induced psychosis) Hx Miscellaneous Medical Probl: No Hx Alcohol Use: Yes Hx Substance Use: Yes Hx Tobacco Use: Yes Smoking Status: Current every day smoker Physical Exam Vitals Vital Signs Date Temp Pulse Resp B/P (MAP) Pulse Ox O2 O2 Flow FiO2 Time Delivery Rate 03/02/19 103 14 139/103 97 Room Air 16:40 (115) 03/02/19 98.8 121 20 162/103 99 13:42 (122) Physical Exam Constitutional:Well-developed. Well-nourished. HEENT:Normocephalic. Atraumatic.Pupils were equal round reactive to light. Moist mucous membranes.No tonsillar exudates. Neck: No nuchal rigidity. No lymphadenopathy. No posterior cervical spine tenderness or step-offs. Respiratory: Not using accessory muscles of respiration.Lungs were clear to auscultation bilaterally. No rhonchi. No rales. No wheezing. Cardiovascular: Regular rate regular rhythm.No murmurs. No rubs were appreciated.S1, S2 normal. Distal pulses are palpable 2+ bilaterally. GI: Abdomen was soft. Nontender. Non Distended. No pulsatile abdominal masses or bruits. No rebound. No guarding. Bowel sounds were present and normal. Muscle skeletal: Full range of motion of both the upper and lower extremities bilaterally.Normal muscle tone.No assymetrical calf tenderness or swelling. Skin: No petechia, no purpura. No lesions on the palms or the soles of the feet. No maculopapular rash. NEURO: Patient was alert, awake, orientated x3.No facial droop. Gait observed and normal with no ataxia.Speech had regular rate and rhythm. No focal neurological deficits. PSYCH: The patient is very guarded and paranoid. He denied any suicidal homicidal thoughts or ideations. He was experiencing auditory hallucinations and tactile hallucinations. Result Diagram: 03/02/19 1655 03/02/19 1655 Results 24 hrs Laboratory Tests Test 03/02/19 16:55 03/02/19 17:02 White Blood Count 11.5 10^3/ul Red Blood Count 5.15 10^6/ul Hemoglobin 16.8 g/dl Hematocrit 47.5 % Mean Corpuscular Volume 92.2 fl Mean Corpuscular Hemoglobin 32.6 pg Mean Corpuscular Hemoglobin Concent 35.4 g/dl Red Cell Distribution Width 13.4 % Platelet Count 223 10^3/UL Mean Platelet Volume 9.7 fl Immature Granulocytes % 0.300 % Neutrophils % 65.1 % Lymphocytes % 24.0 % Monocytes % 9.2 % Eosinophils % 1.0 % Basophils % 0.4 % Nucleated Red Blood Cells % 0.0 /100WBC Immature Granulocytes # 0.040 10^3/ul Neutrophils # 7.5 10^3/ul Lymphocytes # 2.8 10^3/ul Monocytes # 1.1 10^3/ul Eosinophils # 0.1 10^3/ul Basophils # 0.1 10^3/ul Nucleated Red Blood Cells # 0.0 10^3/ul Prothrombin Time 13.1 Sec Prothrombin Time Ratio 1.0 INR International Normalized Ratio 0.98 Activated Partial Thromboplast Time 27.2 Sec Sodium Level 140 mmol/L Potassium Level 3.6 mmol/L Chloride Level 104 mmol/L Carbon Dioxide Level 25 mmol/L Anion Gap 11 Blood Urea Nitrogen 12 mg/dl Creatinine 0.82 mg/dl Est Glomerular Filtrat Rate mL/min > 60 mL/min Glucose Level 82 mg/dl Calcium Level 9.7 mg/dl Total Bilirubin 1.8 mg/dl Direct Bilirubin 0.00 mg/dl Indirect Bilirubin 1.8 mg/dl Aspartate Amino Transf (AST/SGOT) 32 IU/L Alanine Aminotransferase (ALT/SGPT) 37 IU/L Alkaline Phosphatase 91 IU/L Total Protein 7.9 g/dl Albumin 4.3 g/dl Globulin 3.60 g/dl Albumin/Globulin Ratio 1.19 Salicylates Level < 1.0 mg/dl Acetaminophen Level < 10.0 ug/ml Ethyl Alcohol Level < 10.0 mg/dl Urine Color STRAW Urine Clarity CLEAR Urine pH 6.0 Urine Specific [place] 1.003 Urine Ketones TRACE mg/dL Urine Nitrite NEGATIVE mg/dL Urine Bilirubin NEGATIVE mg/dL Urine Urobilinogen NEGATIVE mg/dL Urine Leukocyte Esterase NEGATIVE Marlen/ul Urine Hemoglobin NEGATIVE mg/dL Urine Glucose NEGATIVE mg/dL Urine Total Protein NEGATIVE mg/dl Urine Opiates Screen Negative Urine Barbiturates Negative Urine Amphetamines Screen POSITIVE Urine Benzodiazepines Screen Negative Urine Cocaine Screen Negative Urine Cannabinoids Negative Current Medications Medications Dose Sig/Jhonathan Start Time Status Last (Trade) Ordered Route PRN Stop Time Admin Dose Reason Admin Lorazepam 1 mg ONCE ONCE 03/02/19 DC 03/02/19 (Ativan) PO 18:00 03/02/19 18:13 18:01 Procedures/MDM This patient presented to the emergency department with acute psychosis and my differential diagnosis included but was not limited to ruling out life threatening causes of acute psychosis such as Wernickes encephalopathy, hypoxia, hypoglycemia, hypertensive encephalopathy, intracerebral hemorrhage, meningitis, poisoning. After my evaluation and workup on the patient I was able to exclude medical and reversible causes of the patients psychosis. It was my clinical impression the patients symptoms were an exacerbation of his psychiatric disorder could be exacerbated from a positive amphetamine drug screen; however, the patient was medically cleared by myself at this time for psychiatric evaluation and possible transfer. There is no severe left leg on normalities. I did obtain a lumbar radiograph that showed no foreign bodies or fractures. Departure Diagnosis: Primary Impression: Amphetamine abuse Additional Impression: Psychosis Psychosis type: unspecified psychosis type Qualified Codes: F29 - Unspecified psychosis not due to a substance or known physiological condition Condition: LINDSAY Villarreal MD March 02, 2019 19:53
--- NOTE | 2019-03-02 23:37 | PSY ---
Date/Time of Note Date/Time of Note DATE: 03/02/19 TIME: 23:26 Psychiatric Subjective Eval Consent Pt consented to telemedicine: Yes Subjective Evaluation Patient location: emergency Chief Complaint: Patient states sitting on grass felt something shocked him Medical history Problems Medical Problems: (1) Abdominal pain Status: Acute (2) LESLEY (acute kidney injury) Status: Acute (3) LESLEY (acute kidney injury) Status: Acute (4) Amphetamine abuse Status: Acute (5) Amphetamine abuse Status: Acute (6) Ankle pain Status: Acute (7) Ankle pain Status: Acute (8) Cellulitis Status: Acute (9) Cellulitis of left lower extremity Status: Acute (10) Cellulitis of left lower extremity Status: Acute (11) Chest wall pain Status: Acute (12) Hallucinations Status: Acute (13) Inguinal hernia Status: Acute (14) Pain of left leg Status: Acute (15) Patient left after triage Status: Acute (16) Patient left after triage Status: Acute (17) Patient left after triage Status: Acute (18) Patient left before triage assessment Status: Acute (19) Patient left without being seen Status: Acute (20) Patient left without being seen Status: Acute (21) Patient left without being seen Status: Acute (22) Patient left without being seen Status: Acute (23) Patient left without being seen Status: Acute (24) Postoperative complication Status: Acute (25) Psychological disorder Status: Acute (26) Psychological disorder Status: Acute (27) Psychosis Status: Acute (28) Psychosis Status: Acute (29) Psychosis Status: Acute (30) Psychosis Status: Acute (31) Psychosis Status: Acute (32) Psychosis Status: Acute (33) Sepsis due to cellulitis Status: Acute (34) Sepsis due to cellulitis Status: Acute (35) Substance abuse Status: Acute Allergies: Coded Allergies: ibuprofen (Unverified Allergy, Unknown, 03/02/19) Psychiatric Objective Eval Mental Status Examination: Laboratory Results Laboratory Tests Test 03/02/19 16:55 03/02/19 17:02 White Blood Count 11.5 10^3/ul Red Blood Count 5.15 10^6/ul Hemoglobin 16.8 g/dl Hematocrit 47.5 % Mean Corpuscular Volume 92.2 fl Mean Corpuscular Hemoglobin 32.6 pg Mean Corpuscular Hemoglobin Concent 35.4 g/dl Red Cell Distribution Width 13.4 % Platelet Count 223 10^3/UL Mean Platelet Volume 9.7 fl Immature Granulocytes % 0.300 % Neutrophils % 65.1 % Lymphocytes % 24.0 % Monocytes % 9.2 % Eosinophils % 1.0 % Basophils % 0.4 % Nucleated Red Blood Cells % 0.0 /100WBC Immature Granulocytes # 0.040 10^3/ul Neutrophils # 7.5 10^3/ul Lymphocytes # 2.8 10^3/ul Monocytes # 1.1 10^3/ul Eosinophils # 0.1 10^3/ul Basophils # 0.1 10^3/ul Nucleated Red Blood Cells # 0.0 10^3/ul Prothrombin Time 13.1 Sec Prothrombin Time Ratio 1.0 INR International Normalized Ratio 0.98 Activated Partial Thromboplast Time 27.2 Sec Sodium Level 140 mmol/L Potassium Level 3.6 mmol/L Chloride Level 104 mmol/L Carbon Dioxide Level 25 mmol/L Anion Gap 11 Blood Urea Nitrogen 12 mg/dl Creatinine 0.82 mg/dl Est Glomerular Filtrat Rate mL/min > 60 mL/min Glucose Level 82 mg/dl Calcium Level 9.7 mg/dl Total Bilirubin 1.8 mg/dl Direct Bilirubin 0.00 mg/dl Indirect Bilirubin 1.8 mg/dl Aspartate Amino Transf (AST/SGOT) 32 IU/L Alanine Aminotransferase (ALT/SGPT) 37 IU/L Alkaline Phosphatase 91 IU/L Total Protein 7.9 g/dl Albumin 4.3 g/dl Globulin 3.60 g/dl Albumin/Globulin Ratio 1.19 Salicylates Level < 1.0 mg/dl Acetaminophen Level < 10.0 ug/ml Ethyl Alcohol Level < 10.0 mg/dl Urine Color STRAW Urine Clarity CLEAR Urine pH 6.0 Urine Specific [place] 1.003 Urine Ketones TRACE mg/dL Urine Nitrite NEGATIVE mg/dL Urine Bilirubin NEGATIVE mg/dL Urine Urobilinogen NEGATIVE mg/dL Urine Leukocyte Esterase NEGATIVE Marlen/ul Urine Hemoglobin NEGATIVE mg/dL Urine Glucose NEGATIVE mg/dL Urine Total Protein NEGATIVE mg/dl Urine Opiates Screen Negative Urine Barbiturates Negative Urine Amphetamines Screen POSITIVE Urine Benzodiazepines Screen Negative Urine Cocaine Screen Negative Urine Cannabinoids Negative Assessment and Plan Recommendation/Plan Discharge Disposition: Psychiatric inpatient Legal Status: Place involuntary hold Assessment Additional comments: IDENTIFYING INFORMATION: 58 year old Male patient who is currently located at the hospital and for whom psychiatric consultation was requested. SOURCES OF INFORMATION: The patient who appears to be somewhat reliable and the medical records; the nursing staff. CHIEF COMPLAINT: "I was shocked". HISTORY OF PRESENT ILLNESS: The patient was interviewed via telemedicine in the presence of and under the supervision of nursing staff of the hospital. The consent to conducting this interview via telemedicine was obtained by the nursing staff at the hospital. Dr. Ace reports that the patient presented with paranoid delusions, reported that he was being shocked. The patient reports that something shocked his body; he is not sure what happened. Reports that the [employer] chose him, he is the third son, it is a secret, they are doing an investigation, they have a monitor in me, in my butt, and they caused internal bleeding, admits to . He reports that he tried to have the monitors removed. He reports that the police placed the monitors in my butt and won't pay for the medical expenses. The patient denies having SI, HI. The patient denies using alcohol heavily or regularly. The patient denies using any other substances. In terms of past psychiatric history, the patient reports having a history of no past psychiatric hospitalizations. The patient reports having a history of no past suicide attempts. Past medication trials: yes, but does not remember. PAST MEDICAL HISTORY: none. CURRENT MEDICATIONS: none. ALLERGIES TO MEDICATIONS: NKDA. LABORATORY TESTS: CBC with WBCs 11.5, CMP with total bili 1.8, indirect bili 1.8, UDS + amph, no alcohol detected, SOCIAL HISTORY: single, has a girlfriend, has 1 child, not employed. REVIEW OF SYSTEMS: Constitutional (e.g., fever, weight loss): negative; Eyes, Ears, Nose, Mouth, Throat: negative; Cardiovascular: negative; Respiratory: negative; Gastrointestinal: negative; Genitourinary: negative; Musculoskeletal: negative; Integumentary (skin and/or breast): negative; Neurological: negative; Psychiatric: as per HPI; Endocrine: negative; Hematologic/Lymphatic: negative; Allergic/Immunologic: negative. MENTAL STATUS EXAMINATION: General Appearance and Behavior: anxious, appears to be responding to internal stimuli, somewhat cooperative with most of the interview, distant with the current interviewer, makes poor eye contact, poorly groomed, normal psychomotor activity, no abnormal movements noted. Speech: Normal rate, regular rhythm, normal latency, normal volume, increased amount. Flow of thought: tangential, illogical, not goal-directed. Content of thought: + auditory hallucinations, + paranoid delusions, no visual hallucinations, denies suicidal ideation; no homicidal ideation. Mood: "fine". Affect: flat, decreased range of reactivity. Attention: normal based on the interview. Insight: poor. Judgment: poor. Memory: normal based on the interview. Sensorium: alert and oriented to person, date, place. ASSESSMENT: The patient's presentation and history are consistent with the diagnosis of unspecified psychotic disorder, stimulant use disorder. The patient presents with an exacerbation of psychosis in the context of medication noncompliance, psychosocial stressors and substance use. PLAN: - Medication management: Would start zyprexa 5 mg po bid. Would start haloperidol 5 mg IM PRN severe agitation q4 hours. Would start diphenhydramine 50 mg IM PRN severe agitation q4 hours. Would start lorazepam 2 mg IM PRN severe agitation q4 hours Will defer to the inpatient psychiatry team for other medication changes. - Labs: No other laboratory tests are needed at this time. - Psychotherapy: Provided supportive psychotherapy and psychoeducation. - Disposition: Would recommend involuntary admission to the inpatient psychiatric unit given the severity of the patient's psychiatric condition and the fact that the patient is an imminent danger to self and/or others so long as the patient has been cleared medically for admission to psychiatry. Inpatient psychiatric admission is at this time the least restrictive environment where the patient can receive the psychiatric care that is needed. Would place on suicide precautions. The patient fulfills criteria for being placed on an involuntary hold for being gravely disabled due to a psychiatric disorder. Discussed about the above plan with Dr. Godwin. CARROLL BROWNLEE MD March 02, 2019 23:36
--- NOTE | 2019-03-03 04:01 | QN ---
Documentation Comment Observation Note: Time: 4 hours Family Hx: Negative for diabetes Evaluation: Multiple exams showed improving symptoms and no evidence of clinical decompensation. LIAM GEE MD March 03, 2019 04:01
[2019-03-03] MEDS ORDERED: OLANZAPINE (ODT) 5 MG TAB ODT SCH (09:00)
[2019-03-03] MEDS ORDERED: LORAZEPAM 2 MG INJ ONE (10:03)
[2019-03-03] MEDS ORDERED: DIPHENHYDRAMINE 50 MG INJ ONE (10:03)
[2019-03-03] MEDS ORDERED: HALOPERIDOL 5 MG INJ ONE (10:03)
--- NOTE | 2019-03-03 10:18 | QN ---
Documentation Comment Psychiatric Observation Note: Indication: Unspecified psychosis and stimulant use disorder. Duration: 8 hours Family history: As documented in original HPI The patient was observed with serial exams over the above timeframe. At 10:03 patient require emergent Haldol/Ativan/Benadryl IM when lesser measures failed to resolve his agitated, combative, aggressive behavior. At 13: 45 patient is resting comfortably. Vital signs are stable. All other needs have been met during emergency department stay. Hold status: Telemetry medicine psychiatry has recommended 5150 hold. PET e valuation is pending. Placement status: Pending placement at this time. right of way worker is actively working to place this patient. ANA BUTTS MD March 03, 2019 10:18
--- NOTE | 2019-03-03 10:39 | PSY ---
Date/Time of Note Date/Time of Note DATE: 03/03/19 TIME: 10:36 Psychiatric Subjective Eval Consent Pt consented to telemedicine: Yes Subjective Evaluation Patient location: emergency Chief Complaint: Patient states sitting on grass felt something shocked him History of present illness 58 yo male presented with paranoia in the context of methamphetamine intoxication. Pt was seen by Dr Rodriguez who recommended 5150 for GD and DTO. This MD attempted to see the pt. an RN informed this MD that the pt became severely agitated nad had to be chemically restrained. This MD was not able to evalaute the pt due to the sedation. Medical history Problems Medical Problems: (1) Abdominal pain Status: Acute (2) LESLEY (acute kidney injury) Status: Acute (3) LESLEY (acute kidney injury) Status: Acute (4) Amphetamine abuse Status: Acute (5) Amphetamine abuse Status: Acute (6) Ankle pain Status: Acute (7) Ankle pain Status: Acute (8) Cellulitis Status: Acute (9) Cellulitis of left lower extremity Status: Acute (10) Cellulitis of left lower extremity Status: Acute (11) Chest wall pain Status: Acute (12) Hallucinations Status: Acute (13) Inguinal hernia Status: Acute (14) Pain of left leg Status: Acute (15) Patient left after triage Status: Acute (16) Patient left after triage Status: Acute (17) Patient left after triage Status: Acute (18) Patient left before triage assessment Status: Acute (19) Patient left without being seen Status: Acute (20) Patient left without being seen Status: Acute (21) Patient left without being seen Status: Acute (22) Patient left without being seen Status: Acute (23) Patient left without being seen Status: Acute (24) Postoperative complication Status: Acute (25) Psychological disorder Status: Acute (26) Psychological disorder Status: Acute (27) Psychosis Status: Acute (28) Psychosis Status: Acute (29) Psychosis Status: Acute (30) Psychosis Status: Acute (31) Psychosis Status: Acute (32) Psychosis Status: Acute (33) Sepsis due to cellulitis Status: Acute (34) Sepsis due to cellulitis Status: Acute (35) Substance abuse Status: Acute Allergies: Coded Allergies: ibuprofen (Unverified Allergy, Unknown, 03/02/19) Psychiatric Objective Eval Mental Status Examination: Laboratory Results Laboratory Tests Test 03/02/19 16:55 03/02/19 17:02 White Blood Count 11.5 10^3/ul Red Blood Count 5.15 10^6/ul Hemoglobin 16.8 g/dl Hematocrit 47.5 % Mean Corpuscular Volume 92.2 fl Mean Corpuscular Hemoglobin 32.6 pg Mean Corpuscular Hemoglobin Concent 35.4 g/dl Red Cell Distribution Width 13.4 % Platelet Count 223 10^3/UL Mean Platelet Volume 9.7 fl Immature Granulocytes % 0.300 % Neutrophils % 65.1 % Lymphocytes % 24.0 % Monocytes % 9.2 % Eosinophils % 1.0 % Basophils % 0.4 % Nucleated Red Blood Cells % 0.0 /100WBC Immature Granulocytes # 0.040 10^3/ul Neutrophils # 7.5 10^3/ul Lymphocytes # 2.8 10^3/ul Monocytes # 1.1 10^3/ul Eosinophils # 0.1 10^3/ul Basophils # 0.1 10^3/ul Nucleated Red Blood Cells # 0.0 10^3/ul Prothrombin Time 13.1 Sec Prothrombin Time Ratio 1.0 INR International Normalized Ratio 0.98 Activated Partial Thromboplast Time 27.2 Sec Sodium Level 140 mmol/L Potassium Level 3.6 mmol/L Chloride Level 104 mmol/L Carbon Dioxide Level 25 mmol/L Anion Gap 11 Blood Urea Nitrogen 12 mg/dl Creatinine 0.82 mg/dl Est Glomerular Filtrat Rate mL/min > 60 mL/min Glucose Level 82 mg/dl Calcium Level 9.7 mg/dl Total Bilirubin 1.8 mg/dl Direct Bilirubin 0.00 mg/dl Indirect Bilirubin 1.8 mg/dl Aspartate Amino Transf (AST/SGOT) 32 IU/L Alanine Aminotransferase (ALT/SGPT) 37 IU/L Alkaline Phosphatase 91 IU/L Total Protein 7.9 g/dl Albumin 4.3 g/dl Globulin 3.60 g/dl Albumin/Globulin Ratio 1.19 Salicylates Level < 1.0 mg/dl Acetaminophen Level < 10.0 ug/ml Ethyl Alcohol Level < 10.0 mg/dl Urine Color STRAW Urine Clarity CLEAR Urine pH 6.0 Urine Specific [place] 1.003 Urine Ketones TRACE mg/dL Urine Nitrite NEGATIVE mg/dL Urine Bilirubin NEGATIVE mg/dL Urine Urobilinogen NEGATIVE mg/dL Urine Leukocyte Esterase NEGATIVE Marlen/ul Urine Hemoglobin NEGATIVE mg/dL Urine Glucose NEGATIVE mg/dL Urine Total Protein NEGATIVE mg/dl Urine Opiates Screen Negative Urine Barbiturates Negative Urine Amphetamines Screen POSITIVE Urine Benzodiazepines Screen Negative Urine Cocaine Screen Negative Urine Cannabinoids Negative Assessment and Plan Assessment/Diagnosis Diagnosis AMphetamine like substance induced psychosis. Recommendation/Plan Discharge Disposition: Psychiatric inpatient Legal Status: Continue involuntary hold Other this MD was not able to complete consultation due to pt's sedation. Chart reviewed. Agree with Dr Rodriguez recommendations. If the consultation is still needed please call then the pt will be fully awake and alert. OLY SOUZA MD March 03, 2019 10:39
[2019-03-03 14:39] VITALS: BP 132/71; PULSE 78; RESP 18
--- NOTE | 2019-03-03 19:55 | EN ---
Date/Time of Note Date/Time of Note DATE: 03/03/19 TIME: 19:55 ER Progress Note PMR is evaluated the patient is to the patient is stable for discharge home. I will provide discharge paperwork KARON CONNER DO March 03, 2019 19:55
== END 2019-03-03 21:26 | disposition home or self-care (01) ==
LOC: E/R 13:37
DX: F15.10 Other stimulant abuse, uncomplicated (principal); F29 Unspecified psychosis not due to a substance or known physiological condition; F17.210 Nicotine dependence, cigarettes, uncomplicated
CPT/HCPCS: 72100; 80053; 80307; 81003; 85025; 85610; 85730; J1200; J1630; J2060; Z7502; Z7610